=== PATIENT | male | born 1950 ===

== ENCOUNTER 2018-08-17 11:31 | Inpatient (IN) | payer BC ==
--- NOTE | 2018-08-17 12:23 | C.PDOC ---
History Of Present Illness 67 y/o male with htn and hypercholesterolemia presents to ed with pain and swelling to 3rd and 4th right fingertips for the last week. no injury. 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 Time Seen by Provider: 08/17/18 12:05 Chief Complaint (Nursing): Finger,Hand,&Wrist History Per: Patient History/Exam Limitations: no limitations Onset/Duration Of Symptoms: Days (7) Current Symptoms Are (Timing): Still Present Quality: "Pain" Severity: Moderate Past Medical History Reviewed: Historical Data, Nursing Documentation, Vital Signs Vital Signs: Last Vital Signs Temp 98.1 F 08/17/18 11:53 Pulse 95 H 08/17/18 11:53 Resp 18 08/17/18 11:53 BP 160/100 H 08/17/18 11:53 Pulse Ox 97 08/17/18 11:53 - Medical History PMH: HTN, Hypercholesterolemia Family History: States: No Known Family Hx - Social History Hx Tobacco Use: Yes Hx Alcohol Use: No Hx Substance Use: No - Immunization History Hx Tetanus Toxoid Vaccination: No Hx Influenza Vaccination: No Hx Pneumococcal Vaccination: No Review Of Systems Constitutional: Negative for: Fever, Chills Cardiovascular: Negative for: Chest Pain Respiratory: Negative for: Cough, Shortness of Breath Skin: Positive for: Other (bluish coloration to fingertips right hand) Neurological: Negative for: Weakness, Numbness Physical Exam - Physical Exam Appears: Non-toxic, No Acute Distress Skin: Warm, Dry Head: Normacephalic Neck: Supple Gastrointestinal/Abdominal: Soft, No Tenderness Extremity: Normal ROM, Other (no radial pulse palpable right hand, faint ulnar pulse palpated, right 3rd and 4th distal phlanges swollen, tender, cool to touch with blue discoloration to ventral surface fingertips, +2 bilateral dp pulses, toes cool to touch. +2 left radial pulse. ) Pulses: Right Brachial: Normal, Left Radial: Normal, Right Radial: Decreased, Left Dorsalis Pedis: Normal, Right Dorsalis Pedis: Normal Neurological/Psych: Oriented x3, Normal Speech, Normal Cognition ED Course And Treatment - Laboratory Results Result Diagrams: 08/17/18 12:33 08/17/18 12:33 ECG: Viewed By Me ECG Rhythm: Sinus Tachycardia Interpretation Of ECG: Possible left atrial enlargement. Left ventricular hypertrophy. Nonspecific T wave abnormality. Rate From EC O2 Sat by Pulse Oximetry: 97 (RA) Pulse Ox Interpretation: Normal Medical Decision Making Medical Decision Makin:22 Spoke to surgical services director pt with cool blue fingertips right hand; sx consult for arterial occlusion, will get cta arm, and sx vascular consult. Patient has no prior EKG done to compare with. discussed with Toi Lora and Bryan, will admit to Dr Adams,. Disposition Discussed With .: Ty Adams Doctor Will See Patient In The: Hospital - Disposition Disposition: HOSPITALIZED Disposition Time: 15:15 Condition: SERIOUS Forms: [place] (Lao) - Clinical Impression Clinical Impression: Arterial occlusion, Hypertension Decision To Admit - Pt Status Changed To: Hospital Disposition Of: Inpatient - Admit Certification Admit to Inpatient:: After my assessment, the patient will require hospitalization for at least two midnights. This is because of the severity of symptoms shown, intensity of services needed, and/or the medical risk in this patient being treated as an outpatient. - InPatient: Physician Admission Certification: I certify that this patient requires 2 or more midnights of care for the following reason:: requires in depth eval/testing and possibly to or for arteial occlusion - . Bed Request Type: Telemetry Patient Diagnosis: Arterial occlusion, Hypertension
[2018-08-17 12:42] LABS: BASO # 0.1 K/uL (0.0-0.2); BASO % 1.1 % (0.0-2.0); EOS # 1.6 K/uL (0.0-0.7); EOS % 12.4 % (0.0-4.0); LYMPH # 4.4 K/uL (1.0-4.3); LYMPH % 33.6 % (20.0-40.0); MEAN CELL VOLUME 91.6 fL (80.0-94.0); MEAN CORPUSCULAR HEMOGLOBIN 30.8 pg (27.0-31.0); MEAN CORPUSCULAR HGB CONC 33.7 g/dL (33.0-37.0); MEAN PLATELET VOLUME 7.7 fL (7.2-11.7); MONO # 1.2 K/uL (0.0-0.8); MONO % 9.1 % (0.0-10.0); NEUT # 5.7 K/uL (1.8-7.0); NEUT % 43.8 % (50.0-75.0); RBC 5.19 Mil/uL (4.40-5.90); RED CELL DISTRIBUTION WIDTH 14.1 % (11.5-14.5); WHITE BLOOD COUNT 13.1 K/uL (4.8-10.8)
[2018-08-17 12:52] LABS: PROTHROMBIN TIME 11.3 SECONDS (9.7-12.2)
[2018-08-17 12:53] LABS: ALB/GLOB RATIO 1.2 (1.0-2.1); ALBUMIN 4.5 g/dL (3.5-5.0); ALT/SGPT 12 U/L (21-72); AST/SGOT 32 U/L (17-59); BLOOD UREA NITROGEN 23 mg/dL (9-20); CALCIUM 9.4 mg/dl (8.6-10.4); GFR NON-AFRICAN AMERICAN > 60
[2018-08-17] MEDS ORDERED: Heparin25000 units/250ml 1/2NS 25,000 UNITS/250 ML BAG IV ONE ×3 (13:24→21:45)
--- NOTE | 2018-08-17 13:31 | CP.PCM.CON ---
History of Present Illness - History of Present Illness History of Present Illness: Vascular Surgery Dr. Lora 67 y/o M w/ PMHx of HTN, HLD, tobacco abuse presents to the ED c/o pain in R 2nd-4th digits. 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 Pain is localized to 2nd-4th DIP, though worse on 2nd DIP. Pt reports full ROM and no numbness, though does admit to noticeable temperature changes to tips of painful fingers. 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 reports wearing 2 gloves while working. Pt also reports previous degloving injury to posterior 2nd DIP ~10yrs ago that was repair, however pt did not f/u w/ hand surgeon as instructed. Pt denies any other associated symptoms. PMHx: see above Meds: reviewed in chart NKDA PSHx: hernia repair SHx: 4-5cigs per day (previous 1ppd); denies EtOH, drug use FHx: noncontributory Review of Systems - Review of Systems All systems: reviewed and no additional remarkable complaints except (see HPI) Past Patient History - Past Social History Smoking Status: Light Smoker < 10 Cigarettes Daily - CARDIAC Hx Hypercholesterolemia: Yes Hx Hypertension: Yes - PSYCHIATRIC Hx Substance Use: No - SURGICAL HISTORY Hx Surgeries: Yes Hx Herniorrhaphy: Yes Meds Allergies/Adverse Reactions: Allergies Allergy/AdvReac Type Severity Reaction Status Date / Time No Known Allergies Allergy Verified 08/17/18 11:52 Physical Exam - Constitutional Appears: Non-toxic, No Acute Distress - Head Exam Head Exam: NORMAL INSPECTION - Eye Exam Eye Exam: Normal appearance - ENT Exam ENT Exam: Mucous Membranes Moist - Respiratory Exam Respiratory Exam: NORMAL BREATHING PATTERN. absent: Accessory Muscle Use, Respiratory Distress - Cardiovascular Exam Cardiovascular Exam: REGULAR RHYTHM. absent: Bradycardia, Tachycardia - GI/Abdominal Exam GI & Abdominal Exam: Soft. absent: Distended, Tenderness - Extremities Exam Additional comments: R 2nd-3rd DIP TTP, bluish, cold palpable R ulnar pulse non-palpable R radial pulse L radial and ulnar pulses intact palpable B/L DP/PT - Neurological Exam Neurological exam: Alert, Oriented x3 - Psychiatric Exam Psychiatric exam: Normal Affect, Normal Mood - Skin Skin Exam: Dry, Intact, Normal Color, Warm Results - Vital Signs Recent Vital Signs: Last Vital Signs Temp 98.1 F 08/17/18 11:53 Pulse 95 H 08/17/18 11:53 Resp 18 08/17/18 11:53 BP 160/100 H 08/17/18 11:53 Pulse Ox 97 08/17/18 13:18 - Labs Result Diagrams: 08/17/18 12:33 08/17/18 12:33 Labs: Laboratory Results - last 24 hr 08/17/18 08/17/18 08/17/18 12:33 12:33 12:33 WBC 13.1 H RBC 5.19 Hgb 16.0 Hct 47.5 MCV 91.6 MCH 30.8 MCHC 33.7 RDW 14.1 Plt Count 273 MPV 7.7 Neut % (Auto) 43.8 L Lymph % (Auto) 33.6 [place] % (Auto) 9.1 Eos % (Auto) 12.4 H Baso % (Auto) 1.1 Neut # (Auto) 5.7 Lymph # (Auto) 4.4 H [place] # (Auto) 1.2 H Eos # (Auto) 1.6 H Baso # (Auto) 0.1 PT 11.3 INR 1.0 APTT 31 Sodium 134 Potassium 4.0 Chloride 98 Carbon Dioxide 26 Anion Gap 14 BUN 23 H Creatinine 1.0 Est GFR ( Amer) > 60 Est GFR (Non-Af Amer) > 60 Random Glucose 95 Calcium 9.4 Total Bilirubin 0.4 AST 32 ALT 12 L Alkaline Phosphatase 137 H Total Protein 8.2 Albumin 4.5 Globulin 3.8 Albumin/Globulin Ratio 1.2 - Imaging and Cardiology CTA RUE Status: Pending Assessment & Plan - Assessment and Plan (Free Text) Assessment: 67 y/o M w/ pain to R 2-4th DIP w/ no radial pulse, concerning for thromboembolism Plan: - f/u CTA RUE - start Hep gtt - type and screen - NPO@MN - IVF - plan for OR Friday 08/18 for brachial cut-down and thromboembolectomy Pt discussed w/ Dr. Geno Farah DO PGY3
[2018-08-17] MEDS ORDERED: Iodixanol 320 MG/ML 200 ML BOTTLE IV ONE (13:32)
--- NOTE | 2018-08-17 14:24 | RAD ---
Date of service: 08/17/2018 HISTORY: pre op COMPARISON: No prior. TECHNIQUE: Chest PA and lateral FINDINGS: LUNGS: No active pulmonary disease. PLEURA: No significant pleural effusion identified. No pneumothorax apparent. CARDIOVASCULAR: Calcific atherosclerotic changes are seen related to the thoracic aorta. Normal cardiac size. No pulmonary vascular congestion. OSSEOUS STRUCTURES: No significant abnormalities. VISUALIZED UPPER ABDOMEN: Normal. OTHER FINDINGS: None. IMPRESSION: No active disease.
[2018-08-17 15:02] LABS: URINE BILIRUBIN NEGATIVE (NEGATIVE); URINE BLOOD 1+ (NEGATIVE); URINE CLARITY Clear (Clear); URINE COLOR Straw (YELLOW); URINE GLUCOSE (UA) NORMAL (Normal); URINE LEUKOCYTE ESTERASE NEG Leu/uL (Negative); URINE PROTEIN NEGATIVE (NEGATIVE); URINE UROBILINOGEN NORMAL mg/dL (0.2-1.0)
[2018-08-17] MEDS ORDERED: Labetalol 25mg/5ml Syringe IVP STA (15:45)
[2018-08-17] MEDS ORDERED: Labetalol 5mg/ml (4ml) ONE (15:51)
--- NOTE | 2018-08-17 16:46 | CT ---
Date of service: 08/17/2018 PROCEDURE: CT ANGIOGRAPHY CHEST AND RIGHT UPPER EXTREMITY. HISTORY: no palpable radial pulse, blue cold fingertips COMPARISON: None available. TECHNIQUE: Contiguous axial images were obtained through the chest during the arterial phase of intravenous contrast enhancement. Sagittal and coronal reconstructions were performed. IV contrast: Visipaque 320, 120 cc Radiation dose: Total exam DLP = 1960.55 mGy-cm. This CT exam was performed using one or more of the following dose reduction techniques: Automated exposure control, adjustment of the mA and/or kV according to patient size, and/or use of iterative reconstruction technique. FINDINGS: Angiography: The examination is captured at the arterial venous phase of contrast enhancement and not the arterial phase limiting evaluation of small arterial branches. An atherosclerotic thoracic aorta is appreciate without aneurysm or dissection grossly evident. A significant stenosis of the left subclavian artery is not excluded. Mild atherosclerosis seen affecting left common and brachiocephalic arteries with marked calcified atherosclerosis affecting the proximal subclavian artery over a 2-2.5 cm segment suspicious for a high-grade if not critical stenosis here. The remainder of the right subclavian artery is widely patent. The right axillary and brachial arteries appear widely patent as well. The radial artery appears to be occluded at its origin and only occasional distal reconstitution is seen admitted distal segments in short segments. The ulnar artery appears patent throughout without moderate or severe stenosis appreciated throughout. Better characterization can provided by selective angiography under DSA technique. LUNGS: Extensive centrilobular emphysematous changes are identified at the apices with minimal basilar involvement. No infiltrates bilaterally. Dependent atelectasis identified bilaterally with occasional ground-glass opacity representing underlying interstitial pulmonary changes. No discrete mass. Central airways appear clear grossly. MEDIASTINUM: Unremarkable thoracic aorta. No aneurysm or dissection. Normal sized heart. Main pulmonary artery unremarkable. No vascular congestion. No lymphadenopathy. Calcific atherosclerotic changes are seen related to the thoracic aorta. PLEURA: No pleural fluid. No pneumothorax. BONES: No fracture. No destructive lesion. UPPER ABDOMEN: Grossly unremarkable. OTHER FINDINGS: None. IMPRESSION: 1. Poor CT Angiography technique. High-grade if not critical stenosis proximal right renal artery. Occluded lengthy segment of proximal right radial artery beginning at its origin with only occasional segmental reconstitution at short segments of the mid and distal radial artery. Widely patent right ulnar artery throughout. 2. COPD. 3. No infiltrate pleural or pericardial effusion. Normal cardiac size.
[2018-08-17] MEDS ORDERED: Aspirin 325 mg EC Tablets PO ONE (17:42)
[2018-08-17 18:42] LABS: HDL CHOLESTEROL 55 mg/dL (30-70)
[2018-08-17 18:53] LABS: LDL CHOLESTEROL 122 mg/dL (0-129)
[2018-08-17] MEDS: Sodium Chloride 0.9% 1,000 ML IV SCH (20:06)
[2018-08-17 20:58] LABS: BASO # 0.1 K/uL (0.0-0.2); EOS # 1.3 K/uL (0.0-0.7); EOS % 9.7 % (0.0-4.0); HEMOGLOBIN 14.9 g/dL (12.0-18.0); LYMPH # 2.3 K/uL (1.0-4.3); LYMPH % 16.5 % (20.0-40.0); MEAN CELL VOLUME 91.4 fL (80.0-94.0); MEAN CORPUSCULAR HEMOGLOBIN 30.2 pg (27.0-31.0); MEAN PLATELET VOLUME 7.6 fL (7.2-11.7); MONO # 0.9 K/uL (0.0-0.8); MONO % 6.7 % (0.0-10.0); NEUT # 9.1 K/uL (1.8-7.0); NEUT % 66.1 % (50.0-75.0); RBC 4.94 Mil/uL (4.40-5.90); RED CELL DISTRIBUTION WIDTH 13.9 % (11.5-14.5); WHITE BLOOD COUNT 13.8 K/uL (4.8-10.8)
[2018-08-17 21:05] LABS: INR 1.2; PROTHROMBIN TIME 12.6 SECONDS (9.7-12.2)
[2018-08-17 21:12] LABS: BLOOD UREA NITROGEN 20 mg/dL (9-20); CALCIUM 8.7 mg/dl (8.6-10.4); GFR NON-AFRICAN AMERICAN > 60
[2018-08-17 21:21] LABS: CK-MB 2.93 ng/mL (0.0-3.38)
[2018-08-18 03:13] LABS: CK-MB 2.46 ng/mL (0.0-3.38)
[2018-08-18] MEDS: Sodium Chloride 0.9% 1,000 ML IV SCH ×2 (05:18→18:28)
[2018-08-18 08:03] LABS: CK-MB 2.47 ng/mL (0.0-3.38); TROPONIN I 0.013 ng/mL (0.00-0.120)
[2018-08-18] MEDS ORDERED: Iodixanol 320 MG/ML 200 ML BOTTLE IV ONE (09:27)
[2018-08-18] MEDS ORDERED: Lidocaine 2% MPF (5 ml) Inj ONE ×2 (09:27→09:29)
--- NOTE | 2018-08-18 09:47 | CP.PCM.CON ---
<Angeles Sosa EvetteDiana - Last Filed: 08/18/18 18:45> History of Present Illness - History of Present Illness History of Present Illness: Cardiology Consult Note for Dr. Diaz: 67 year old male with PMHx of HTN, HLD and tobacco abuse presented to the ED with pain in his right 2nd-4th digits. He states he has been having pain for awhile but for the past 2 weeks it has become much worse which prompted him to come to the ER. Patient denies numbness or tingling. Patient denies chest pain, shortness of breath, palpitations, nausea, vomiting, fever, chills, diarrhea, constipation or dysuria. Past Medical History: HTN, HLD Past Surgical History: Hernia repair Medications: MAR Social History: Patient states he smokes about 1 ppd for 50 years; he drinks 2-3 beers on the weekend. 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 Review of Systems - Constitutional Constitutional: absent: Chills, Fever - Cardiovascular Cardiovascular: absent: Chest Pain, Dyspnea, Dyspnea on Exertion, Leg Edema, Palpitations - Respiratory Respiratory: absent: Cough, Dyspnea, Wheezing - Gastrointestinal Gastrointestinal: absent: Constipation, Diarrhea, Nausea, Vomiting - Genitourinary Genitourinary: absent: Dysuria - Musculoskeletal Musculoskeletal: Other (pain in his right digitis 2-4) - Neurological Neurological: absent: Dizziness Past Patient History - Past Medical History & Family History Past Medical History?: Yes - Past Social History Smoking Status: Light Smoker < 10 Cigarettes Daily - CARDIAC Hx Hypercholesterolemia: Yes Hx Hypertension: Yes - MUSCULOSKELETAL/RHEUMATOLOGICAL Hx Falls: No - PSYCHIATRIC Hx Substance Use: No - SURGICAL HISTORY Hx Surgeries: Yes Hx Herniorrhaphy: Yes - ANESTHESIA Hx Anesthesia: Yes Hx Anesthesia Reactions: No Hx Malignant Hyperthermia: No Has any member of the family had a problem w/ anesthesia?: No Meds Allergies/Adverse Reactions: Allergies Allergy/AdvReac Type Severity Reaction Status Date / Time No Known Allergies Allergy Verified 08/17/18 11:52 - Medications Medications: Current Medications Aspirin (Ecotrin) 81 mg PO DAILY [facility] Last Admin: 08/17/18 17:47 Dose: 81 mg Sodium Chloride (Sodium Chloride 0.9%) 1,000 mls @ 100 mls/hr IV .Q10H [facility] Last Admin: 08/18/18 05:18 Dose: 100 mls/hr Heparin Sodium/Sodium Chloride (Heparin 96883 Units/250ml 1/2 Normal Saline) 25,000 units in 250 mls @ 12.737 mls/hr IV .[id number] ONE; Protocol Stop: 08/18/18 17:22 Last Admin: 08/17/18 21:53 Dose: 18 units/kg/hr, 12.737 mls/hr Labetalol HCl (Trandate) 100 mg PO BID [facility] Last Admin: 08/17/18 18:08 Dose: 100 mg Rosuvastatin Calcium (Crestor) 20 mg PO HS [facility] Last Admin: 08/17/18 23:24 Dose: 20 mg Physical Exam - Constitutional Appears: No Acute Distress - Head Exam Head Exam: ATRAUMATIC, NORMAL INSPECTION - Eye Exam Eye Exam: EOMI, Normal appearance - ENT Exam ENT Exam: Mucous Membranes Moist - Respiratory Exam Respiratory Exam: Clear to Auscultation Bilateral, NORMAL BREATHING PATTERN - Cardiovascular Exam Cardiovascular Exam: REGULAR RHYTHM, +S1, +S2 - GI/Abdominal Exam GI & Abdominal Exam: Normal Bowel Sounds, Soft. absent: Tenderness - Extremities Exam Additional comments: Righ 2nd-3rd DIP - bluish, cold - Neurological Exam Neurological exam: Alert, Oriented x3 - Psychiatric Exam Psychiatric exam: Normal Affect Results - Vital Signs Recent Vital Signs: Last Vital Signs Temp 97.2 F L 08/18/18 07:00 Pulse 80 08/18/18 07:00 Resp 20 08/18/18 07:00 BP 116/74 08/18/18 07:00 Pulse Ox 97 08/18/18 07:00 - Labs Result Diagrams: 08/17/18 20:51 08/17/18 20:51 Labs: Laboratory Results - last 24 hr 08/17/18 08/17/18 08/17/18 12:33 12:33 12:33 WBC 13.1 H RBC 5.19 Hgb 16.0 Hct 47.5 MCV 91.6 MCH 30.8 MCHC 33.7 RDW 14.1 Plt Count 273 MPV 7.7 Neut % (Auto) 43.8 L Lymph % (Auto) 33.6 [place] % (Auto) 9.1 Eos % (Auto) 12.4 H Baso % (Auto) 1.1 Neut # (Auto) 5.7 Lymph # (Auto) 4.4 H [place] # (Auto) 1.2 H Eos # (Auto) 1.6 H Baso # (Auto) 0.1 ESR PT 11.3 INR 1.0 APTT 31 Sodium 134 Potassium 4.0 Chloride 98 Carbon Dioxide 26 Anion Gap 14 BUN 23 H Creatinine 1.0 Est GFR ( Amer) > 60 Est GFR (Non-Af Amer) > 60 POC Glucose (mg/dL) Random Glucose 95 Calcium 9.4 Total Bilirubin 0.4 AST 32 ALT 12 L Alkaline Phosphatase 137 H Total Creatine Kinase CK-MB (Mass) Troponin I Total Protein 8.2 Albumin 4.5 Globulin 3.8 Albumin/Globulin Ratio 1.2 Triglycerides Cholesterol LDL Cholesterol Direct HDL Cholesterol Urine Color Urine Clarity Urine pH Ur Specific [place] Urine Protein Urine Glucose (UA) Urine Ketones Urine Blood Urine Nitrate Urine Bilirubin Urine Urobilinogen Ur Leukocyte Esterase Urine WBC (Auto) Urine RBC (Auto) Blood Type Antibody Screen 08/17/18 08/17/18 08/17/18 14:49 14:49 18:15 WBC RBC Hgb Hct MCV MCH MCHC RDW Plt Count MPV Neut % (Auto) Lymph % (Auto) [place] % (Auto) Eos % (Auto) Baso % (Auto) Neut # (Auto) Lymph # (Auto) [place] # (Auto) Eos # (Auto) Baso # (Auto) ESR 21 H PT INR APTT Sodium Potassium Chloride Carbon Dioxide Anion Gap BUN Creatinine Est GFR ( Amer) Est GFR (Non-Af Amer) POC Glucose (mg/dL) Random Glucose Calcium Total Bilirubin AST ALT Alkaline Phosphatase Total Creatine Kinase CK-MB (Mass) Troponin I Total Protein Albumin Globulin Albumin/Globulin Ratio Triglycerides Cholesterol LDL Cholesterol Direct HDL Cholesterol Urine Color Straw Urine Clarity Clear Urine pH 7.0 Ur Specific [place] 1.014 Urine Protein Negative Urine Glucose (UA) Normal Urine Ketones Negative Urine Blood 1+ H Urine Nitrate Negative Urine Bilirubin Negative Urine Urobilinogen Normal Ur Leukocyte Esterase Neg Urine WBC (Auto) < 1 Urine RBC (Auto) 2 Blood Type O POSITIVE Antibody Screen Negative 08/17/18 08/17/18 08/17/18 18:15 19:37 20:51 WBC 13.8 H RBC 4.94 Hgb 14.9 Hct 45.1 MCV 91.4 MCH 30.2 MCHC 33.0 RDW 13.9 Plt Count 263 MPV 7.6 Neut % (Auto) 66.1 Lymph % (Auto) 16.5 L [place] % (Auto) 6.7 Eos % (Auto) 9.7 H Baso % (Auto) 1.0 Neut # (Auto) 9.1 H Lymph # (Auto) 2.3 [place] # (Auto) 0.9 H Eos # (Auto) 1.3 H Baso # (Auto) 0.1 ESR PT INR APTT Sodium Potassium Chloride Carbon Dioxide Anion Gap BUN Creatinine Est GFR ( Amer) Est GFR (Non-Af Amer) POC Glucose (mg/dL) 130 H Random Glucose Calcium Total Bilirubin AST ALT Alkaline Phosphatase Total Creatine Kinase CK-MB (Mass) Troponin I Total Protein Albumin Globulin Albumin/Globulin Ratio Triglycerides 82 Cholesterol 189 LDL Cholesterol Direct 122 HDL Cholesterol 55 Urine Color Urine Clarity Urine pH Ur Specific [place] Urine Protein Urine Glucose (UA) Urine Ketones Urine Blood Urine Nitrate Urine Bilirubin Urine Urobilinogen Ur Leukocyte Esterase Urine WBC (Auto) Urine RBC (Auto) Blood Type Antibody Screen 08/17/18 08/17/18 08/18/18 20:51 20:51 02:47 WBC RBC Hgb Hct MCV MCH MCHC RDW Plt Count MPV Neut % (Auto) Lymph % (Auto) [place] % (Auto) Eos % (Auto) Baso % (Auto) Neut # (Auto) Lymph # (Auto) [place] # (Auto) Eos # (Auto) Baso # (Auto) ESR PT 12.6 H INR 1.2 APTT 79 H D Sodium 133 Potassium 3.8 Chloride 102 Carbon Dioxide 22 Anion Gap 13 BUN 20 Creatinine 1.1 Est GFR ( Amer) > 60 Est GFR (Non-Af Amer) > 60 POC Glucose (mg/dL) Random Glucose 115 H D Calcium 8.7 Total Bilirubin AST ALT Alkaline Phosphatase Total Creatine Kinase 215 H 189 H CK-MB (Mass) 2.93 2.46 Troponin I 0.0130 < 0.0120 Total Protein Albumin Globulin Albumin/Globulin Ratio Triglycerides Cholesterol LDL Cholesterol Direct HDL Cholesterol Urine Color Urine Clarity Urine pH Ur Specific [place] Urine Protein Urine Glucose (UA) Urine Ketones Urine Blood Urine Nitrate Urine Bilirubin Urine Urobilinogen Ur Leukocyte Esterase Urine WBC (Auto) Urine RBC (Auto) Blood Type Antibody Screen 08/18/18 08/18/18 03:06 07:18 WBC RBC Hgb Hct MCV MCH MCHC RDW Plt Count MPV Neut % (Auto) Lymph % (Auto) [place] % (Auto) Eos % (Auto) Baso % (Auto) Neut # (Auto) Lymph # (Auto) [place] # (Auto) Eos # (Auto) Baso # (Auto) ESR PT INR APTT 79 H Sodium Potassium Chloride Carbon Dioxide Anion Gap BUN Creatinine Est GFR ( Amer) Est GFR (Non-Af Amer) POC Glucose (mg/dL) Random Glucose Calcium Total Bilirubin AST ALT Alkaline Phosphatase Total Creatine Kinase 147 CK-MB (Mass) 2.47 Troponin I 0.0130 Total Protein Albumin Globulin Albumin/Globulin Ratio Triglycerides Cholesterol LDL Cholesterol Direct HDL Cholesterol Urine Color Urine Clarity Urine pH Ur Specific [place] Urine Protein Urine Glucose (UA) Urine Ketones Urine Blood Urine Nitrate Urine Bilirubin Urine Urobilinogen Ur Leukocyte Esterase Urine WBC (Auto) Urine RBC (Auto) Blood Type Antibody Screen Assessment & Plan - Assessment and Plan (Free Text) Assessment: Pain in Right Digits 2-4 Secondary to Occluded right subclavian artery - Vascular Surgery: Dr. Lora --> help appreciated - s/p 08/18/18 Diagnostic Angiogram with Attempted recancalization of occluded right subclavian artery - Pending Cardiac Optimization: - ECHO (08/18/18): reviewed with Dr. Diaz - Normal - Trop negative x3 - Stress Test Scheduled for 08/19/18 History of HTN - Continue Labetalol 100mg po bid History of HDL - Lipid Panel: Total Cholesterol 189; LDL 122; HDL 55; Triglycerides 82 - Continue Crestor 20mg po HS Case discussed with Dr. Joe Sosa PGY-2 <Chencho Diaz - Last Filed: 08/18/18 23:38> Meds - Medications Medications: Current Medications Aspirin (Ecotrin) 81 mg PO DAILY [facility] Last Admin: 08/18/18 11:01 Dose: Not Given Sodium Chloride (Sodium Chloride 0.9%) 1,000 mls @ 100 mls/hr IV .Q10H [facility] Last Admin: 08/18/18 18:28 Dose: Not Given Sodium Chloride (Sodium Chloride 0.9%) 500 mls @ 75 mls/hr IV .Q6H40M [facility] Last Admin: 08/18/18 22:03 Dose: Not Given Heparin Sodium/Sodium Chloride (Heparin 61145 Units/250ml 1/2 Normal Saline) 25,000 units in 250 mls @ 13.39 mls/hr IV .[id number] PRN; Protocol PRN Reason: PROTOCOL Last Admin: 08/18/18 21:21 Dose: 18 units/kg/hr, 13.39 mls/hr Labetalol HCl (Trandate) 100 mg PO BID [facility] Last Admin: 08/18/18 18:28 Dose: 100 mg Rosuvastatin Calcium (Crestor) 20 mg PO HS [facility] Last Admin: 08/18/18 22:02 Dose: 20 mg Results - Vital Signs Recent Vital Signs: Last Vital Signs Temp 98.1 F 08/18/18 15:15 Pulse 80 08/18/18 16:09 Resp 20 08/18/18 15:15 BP 150/96 H 08/18/18 15:15 Pulse Ox 97 08/18/18 15:15 - Labs Result Diagrams: 08/17/18 20:51 08/17/18 20:51 Labs: Laboratory Results - last 24 hr 08/18/18 08/18/18 08/18/18 02:47 03:06 07:18 APTT 79 H Total Creatine Kinase 189 H 147 CK-MB (Mass) 2.46 2.47 Troponin I < 0.0120 0.0130 Assessment & Plan - Assessment and Plan (Free Text) Assessment: Patient seen and evaluated personally by me. Plan of care d/w the resident and as documented
[2018-08-18] MEDS ORDERED: Midazolam 2 MG/2 ML VIAL ONE (09:49)
--- NOTE | 2018-08-18 11:40 | PCM.SURG1 ---
Surgeon's Initial Post Op Note - Surgeon's Notes Surgeon: Dr. Bailey , Dr. Lora Payroll Processor: Mr. Terrence Varma Type of Anesthesia: MAC Pre-Operative Diagnosis: Right Hand Pain and Ischemia from right subclavian artery stenosis Operative Findings: Right Subclavian Occlusion with reconstitution via collaterals Post-Operative Diagnosis: right subclavian occlusion with reconstituion via collaterals Operation Performed: Diagnostic Angiogram with Attempted recancalization of occluded right subclavian artery Specimen/Specimens Removed: None Estimated Blood Loss: EBL {In ML}: 10 Blood Products Given: N/A Drains Used: No Drains Date of Surgery/Procedure: 08/18/18 Time of Surgery/Procedure: 11:41
[2018-08-18] MEDS ORDERED: Heparin25000 units/250ml 1/2NS 25,000 UNITS/250 ML BAG IV PRN (20:32)
[2018-08-18] MEDS: Heparin25000 units/250ml 1/2NS 25,000 UNITS/250 ML BAG IV PRN (21:21)
[2018-08-18] MEDS: Sodium Chloride 0.9% 500 ML IV SCH (22:03)
--- NOTE | 2018-08-18 22:44 | CP.PCM.HP ---
Present on Admission - Present on Admission Any Indicators Present on Admission: No Past Patient History - Past Medical History & Family History Past Medical History?: Yes - Past Social History Smoking Status: Light Smoker < 10 Cigarettes Daily - CARDIAC Hx Hypercholesterolemia: Yes Hx Hypertension: Yes - MUSCULOSKELETAL/RHEUMATOLOGICAL Hx Falls: No - PSYCHIATRIC Hx Substance Use: No - SURGICAL HISTORY Hx Surgeries: Yes Hx Herniorrhaphy: Yes - ANESTHESIA Hx Anesthesia: Yes Hx Anesthesia Reactions: No Hx Malignant Hyperthermia: No Has any member of the family had a problem w/ anesthesia?: No Meds Allergies/Adverse Reactions: Allergies Allergy/AdvReac Type Severity Reaction Status Date / Time No Known Allergies Allergy Verified 08/17/18 11:52 Results - Vital Signs Recent Vital Signs: Last Vital Signs Temp 98.1 F 08/18/18 15:15 Pulse 80 08/18/18 16:09 Resp 20 08/18/18 15:15 BP 150/96 H 08/18/18 15:15 Pulse Ox 97 08/18/18 15:15 - Labs Result Diagrams: 08/17/18 20:51 08/17/18 20:51 Labs: Laboratory Results - last 24 hr 08/18/18 08/18/18 08/18/18 02:47 03:06 07:18 APTT 79 H Total Creatine Kinase 189 H 147 CK-MB (Mass) 2.46 2.47 Troponin I < 0.0120 0.0130
[2018-08-19 07:43] LABS: BASO % 0.5 % (0.0-2.0); EOS # 0.3 K/uL (0.0-0.7); EOS % 2.8 % (0.0-4.0); HEMOGLOBIN 14.2 g/dL (12.0-18.0); LYMPH # 2.1 K/uL (1.0-4.3); LYMPH % 20.1 % (20.0-40.0); MEAN CELL VOLUME 91.8 fL (80.0-94.0); MEAN CORPUSCULAR HEMOGLOBIN 31.1 pg (27.0-31.0); MEAN CORPUSCULAR HGB CONC 33.9 g/dL (33.0-37.0); MONO % 10.1 % (0.0-10.0); NEUT # 6.9 K/uL (1.8-7.0); NEUT % 66.5 % (50.0-75.0); RBC 4.56 Mil/uL (4.40-5.90); RED CELL DISTRIBUTION WIDTH 13.6 % (11.5-14.5); WHITE BLOOD COUNT 10.3 K/uL (4.8-10.8)
[2018-08-19 08:14] LABS: ALB/GLOB RATIO 1.2 (1.0-2.1); ALBUMIN 3.8 g/dL (3.5-5.0); ALT/SGPT 10 U/L (21-72); AST/SGOT 24 U/L (17-59); BLOOD UREA NITROGEN 12 mg/dL (9-20); CALCIUM 8.1 mg/dl (8.6-10.4); GFR NON-AFRICAN AMERICAN > 60
[2018-08-19] MEDS ORDERED: Caffeine Citrated **INJ** 20 MG/ML IV ONE (08:22)
--- NOTE | 2018-08-19 09:55 | CP.PCM.PN ---
Subjective - Date & Time of Evaluation Date of Evaluation: 08/19/18 Time of Evaluation: 07:00 - Subjective Subjective: Vascular Surgery: Dr. Lora Pt seen and examined. No acute overnight events. States he feels ok and denies any complaints at this time. R hand continues to have some tingling at the fingertips. Denies fevers/chills Objective - Vital Signs/Intake and Output Vital Signs (last 24 hours): Temp Pulse Resp BP Pulse Ox 98.1 F 80 20 164/99 H 97 08/19/18 07:40 08/19/18 07:40 08/19/18 07:40 08/19/18 07:40 08/19/18 07:40 Intake and Output: 08/19/18 08/19/18 06:59 18:59 Intake Total 951.6 Output Total 450 Balance 501.6 - Medications Medications: Current Medications Aspirin (Ecotrin) 81 mg PO DAILY REPLACED BY [facility] Last Admin: 08/18/18 11:01 Dose: Not Given Sodium Chloride (Sodium Chloride 0.9%) 1,000 mls @ 100 mls/hr IV .Q10H REPLACED BY [facility] Last Admin: 08/18/18 18:28 Dose: Not Given Sodium Chloride (Sodium Chloride 0.9%) 500 mls @ 75 mls/hr IV .Q6H40M REPLACED BY [facility] Last Admin: 08/18/18 22:03 Dose: Not Given Heparin Sodium/Sodium Chloride (Heparin 01476 Units/250ml 1/2 Normal Saline) 25,000 units in 250 mls @ 13.39 mls/hr IV .[id number] PRN; Protocol PRN Reason: PROTOCOL Last Admin: 08/18/18 21:21 Dose: 18 units/kg/hr, 13.39 mls/hr Labetalol HCl (Trandate) 100 mg PO BID REPLACED BY [facility] Last Admin: 08/18/18 18:28 Dose: 100 mg Rosuvastatin Calcium (Crestor) 20 mg PO HS REPLACED BY [facility] Last Admin: 08/18/18 22:02 Dose: 20 mg - Labs Labs: 08/19/18 07:31 08/19/18 07:31 PT 12.6 SECONDS (9.7-12.2) H 08/17/18 20:51 INR 1.2 08/17/18 20:51 APTT 73 SECONDS (21-34) H D 08/19/18 07:31 - Constitutional Appears: Well, No Acute Distress - Head Exam Head Exam: ATRAUMATIC, NORMOCEPHALIC - Eye Exam Eye Exam: Normal appearance - ENT Exam ENT Exam: Mucous Membranes Moist - Respiratory Exam Respiratory Exam: NORMAL BREATHING PATTERN - Cardiovascular Exam Cardiovascular Exam: RRR - GI/Abdominal Exam GI & Abdominal Exam: Soft - Extremities Exam Additional comments: R hand with numbness/tingling in first 3 digits, b/l UE warm - Neurological Exam Neurological Exam: Alert, Awake, Oriented x3 Assessment and Plan - Assessment and Plan (Free Text) Assessment: 67M with R subclavian & radial artery stenosis s/p UE angio; POD#1 Plan: - plan for upper extremity bypass - f/u stress test and cardiac risk stratification - optimize for OR - cont Hep drip - d/w Dr. Geno Hassan
--- NOTE | 2018-08-19 10:10 | HP ---
CHIEF COMPLAINT: Left upper extremity pain in the hand. HISTORY OF PRESENT ILLNESS: This is a 67-year-old male with history of hypertension, hyperlipidemia, chronic heavy smoker one pack per day. He denies any history of diabetes, and the patient complained of pain, swelling of third and fourth right hand fingertips. There is no history of injury. 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 According to the patient, most of the time, he does wear gloves and he denies any history of trauma to any part of his upper extremity. According to him, this whole pain started about 10 days prior to the admission and it has been worsening, and in the last two days, it has become unbearable, pain is in second to fourth digit including third digit and this worsened. The patient is able to move all his fingers. He denies any tingling, numbness, paresthesias of the hand. He denies any history of rash on the hand. He denies any history of insect bite. He denies any history of cough, sore throat, runny nose. He denies any history of polyuria, polydipsia, polyphagia. He denies pertinent hematuria or pyuria. There is no history of sneezing. There is no history of joint pain or hip pain. PAST MEDICAL HISTORY: Hernia repair. SOCIAL HISTORY: He is ex-smoker one pack per day. He quit four years ago. Non-alcohol user. He is not taking any medications. ALLERGIES: NO KNOWN ALLERGIES. PHYSICAL EXAMINATION: GENERAL: An elderly male in no acute distress, on heparin drip. VITAL SIGNS: Blood pressure 150/96, pulse 87, respiratory rate 20, temperature 98.1. SKIN: No rashes. No bruises. No purpura. Tips of his second, third and fourth digits are bluish, but rest of the fingers are normal. Bilateral radial and ulnar pulses are palpable. HEENT: Atraumatic and normocephalic. Negative pallor. Negative jaundice. Extraocular movements are intact. NECK: Supple. No JVD. No lymph node. No thyromegaly. No carotid bruit. CHEST WALL: Bilateral symmetrical expansion. No tenderness. No deformity. LUNGS: Bilaterally clear. No rales. No rhonchi. CARDIOVASCULAR SYSTEM: S1 and S2, regular. No heave. No thrill. ABDOMEN: Soft and nontender. Bowel sounds are positive. CENTRAL NERVOUS SYSTEM: Awake, alert, and oriented x3. Cranial nerves II through XII are normal. Power 5/5 x4. Plantars are downgoing. ASSESSMENT: 1. Acute arterial obstruction of left upper extremities, probably underlying atherosclerosis with multiple risk factor including smoking, hyperlipidemia, and hypertension. 2. Hypertension, poorly controlled. 3. Rule out hyperlipidemia. PLAN: Admit. Detailed orders are written. Seen and examined. Ty Adams MD
--- NOTE | 2018-08-19 11:38 | CARD ---
APPROVED REPORT Date of service: 08/18/2018 EXAM: Two-dimensional and M-mode echocardiogram with Doppler and color Doppler. Other Information Quality : GoodRhythm : RISK FACTORS Hypertension Hyperlipidemia 2D DIMENSIONS IVSd1.2 (0.7-1.1cm)LVDd3.4 (3.9-5.9cm) PWd1.2 (0.7-1.1cm)LA Dpresb68 (18-58mL) LVDs1.8 (2.5-4.0cm)FS (%) 48.2 % LVEF (%)71.0 (>50%)LVEF (Harris's)59.50 % IVC0.00 cm M-Mode DIMENSIONS RVDd1.55 (2.1-3.2cm)Left Atrium (MM)3.12 (2.5-4.0cm) IVSd0.88 (0.7-1.1cm)Aortic Root3.19 (2.2-3.7cm) LVDd4.86 (4.0-5.6cm)Aortic Cusp Exc.1.68 (1.5-2.0cm) PWd1.18 (0.7-1.1cm)FS (%) 41 % LVDs2.89 (2.0-3.8cm)LVEF (%)71 (>50%) Mitral Valve MV E Zbvzqsjk90.1cm/sMV A Kesaxvfe398.0cm/sE/A ratio0.6 TDI Lateral E' Peak V6.93cm/sMedial E' Peak V6.55cm/sE/Lateral E'9.5 E/Medial E'10.1 <Conclusion> Left ventricle: thickness: normal; size: normal; overall ejection fraction: 65%: diastolic filling pressures: normal Mitral valve: annulus: MAC; leaflets: normal: excursion: normal; no significant trans-mitral gradient: no significant incompetence: left atrium: normal Aortic valve: leaflets: mild calcific thickening: excursion: normal; no significant trans-aortic gradient: mild incompetence: aortic root: normal Right sided Structures: Pulmonary valve: normal; no significant incompetence; Tricuspid valve: normal; no significant incompetence: Intra-cardiac hemodynamics: pulmonary systolic pressures: normal; central venous pressures: normal No pericardial effusion
--- NOTE | 2018-08-19 12:08 | CP.PCM.PN ---
<Angeles Sosa - Last Filed: 08/19/18 16:46> Subjective - Date & Time of Evaluation Date of Evaluation: 08/19/18 Time of Evaluation: 10:00 - Subjective Subjective: Cardiology Note for Dr. Diaz: Patient was seen and examined at bedside. Patient states he is feeling well. He states he continues to have pain sensation in his right digits 2-4. Patient denies chest pain, shortness of breath, palpitations, nausea, vomiting, fever, chills, diarrhea, constipation or dysuria. Objective - Vital Signs/Intake and Output Vital Signs (last 24 hours): Temp Pulse Resp BP Pulse Ox 98.1 F 92 H 20 138/91 H 97 08/19/18 07:40 08/19/18 10:43 08/19/18 07:40 08/19/18 10:43 08/19/18 07:40 Intake and Output: 08/19/18 08/19/18 06:59 18:59 Intake Total 951.6 Output Total 450 Balance 501.6 - Medications Medications: Current Medications Aspirin (Ecotrin) 81 mg PO DAILY [facility] Last Admin: 08/19/18 10:44 Dose: 81 mg Sodium Chloride (Sodium Chloride 0.9%) 1,000 mls @ 100 mls/hr IV .Q10H [facility] Last Admin: 08/18/18 18:28 Dose: Not Given Sodium Chloride (Sodium Chloride 0.9%) 500 mls @ 75 mls/hr IV .Q6H40M [facility] Last Admin: 08/18/18 22:03 Dose: Not Given Heparin Sodium/Sodium Chloride (Heparin 14907 Units/250ml 1/2 Normal Saline) 25,000 units in 250 mls @ 13.39 mls/hr IV .[id number] PRN; Protocol PRN Reason: PROTOCOL Last Admin: 08/18/18 21:21 Dose: 18 units/kg/hr, 13.39 mls/hr Labetalol HCl (Trandate) 100 mg PO BID [facility] Last Admin: 08/19/18 10:44 Dose: 100 mg Rosuvastatin Calcium (Crestor) 20 mg PO HS [facility] Last Admin: 08/18/18 22:02 Dose: 20 mg - Labs Labs: 08/19/18 07:31 08/19/18 07:31 PT 12.6 SECONDS (9.7-12.2) H 08/17/18 20:51 INR 1.2 08/17/18 20:51 APTT 73 SECONDS (21-34) H D 08/19/18 07:31 - Constitutional Appears: No Acute Distress - Head Exam Head Exam: ATRAUMATIC, NORMAL INSPECTION - Eye Exam Eye Exam: EOMI, Normal appearance - ENT Exam ENT Exam: Mucous Membranes Moist - Respiratory Exam Respiratory Exam: Clear to Ausculation Bilateral, NORMAL BREATHING PATTERN - Cardiovascular Exam Cardiovascular Exam: REGULAR RHYTHM, +S1, +S2 - GI/Abdominal Exam GI & Abdominal Exam: Soft, Normal Bowel Sounds. absent: Tenderness - Extremities Exam Additional comments: Righ 2nd-3rd DIP - bluish, cold Assessment and Plan - Assessment and Plan (Free Text) Assessment: Pain in Right Digits 2-4 Secondary to Occluded right subclavian artery - Vascular Surgery: Dr. Lora --> help appreciated - s/p 08/18/18 Diagnostic Angiogram with Attempted recancalization of occluded right subclavian artery - Pending Cardiac Optimization: - ECHO (08/18/18): reviewed with Dr. Diaz - Normal - Trop negative x3 - Dr. Diaz to review Stress Test (08/19/18) History of HTN - Continue Labetalol 100mg po bid History of HDL - Lipid Panel: Total Cholesterol 189; LDL 122; HDL 55; Triglycerides 82 - Continue Crestor 20mg po HS Case discussed with Dr. Joe Sosa PGY-2 <Chencho Diaz - Last Filed: 08/19/18 19:18> Objective - Vital Signs/Intake and Output Vital Signs (last 24 hours): Temp Pulse Resp BP Pulse Ox 98 F 88 18 117/70 94 L 08/19/18 15:04 08/19/18 16:00 08/19/18 15:04 08/19/18 15:04 08/19/18 15:04 Intake and Output: 08/19/18 08/20/18 18:59 06:59 Intake Total 250 Balance 250 - Medications Medications: Current Medications Aspirin (Ecotrin) 81 mg PO DAILY [facility] Last Admin: 08/19/18 10:44 Dose: 81 mg Sodium Chloride (Sodium Chloride 0.9%) 1,000 mls @ 100 mls/hr IV .Q10H [facility] Last Admin: 08/19/18 12:44 Dose: 100 mls/hr Sodium Chloride (Sodium Chloride 0.9%) 500 mls @ 75 mls/hr IV .Q6H40M [facility] Last Admin: 08/18/18 22:03 Dose: Not Given Heparin Sodium/Sodium Chloride (Heparin 71469 Units/250ml 1/2 Normal Saline) 25,000 units in 250 mls @ 13.39 mls/hr IV .[id number] PRN; Protocol PRN Reason: PROTOCOL Last Admin: 08/19/18 17:25 Dose: 18 units/kg/hr, 13.39 mls/hr Labetalol HCl (Trandate) 100 mg PO BID [facility] Last Admin: 08/19/18 17:36 Dose: 100 mg Rosuvastatin Calcium (Crestor) 20 mg PO HS [facility] Last Admin: 08/18/18 22:02 Dose: 20 mg - Labs Labs: 08/19/18 07:31 08/19/18 07:31 PT 12.6 SECONDS (9.7-12.2) H 08/17/18 20:51 INR 1.2 08/17/18 20:51 APTT 73 SECONDS (21-34) H D 08/19/18 07:31 Assessment and Plan - Assessment and Plan (Free Text) Assessment: Patient has normal stress test and normal EF This patient assessed as low to intermediate cardiac risk for Right Carotid and Subclavian bypass surgery under general anaesthesia Will follow Thanks
[2018-08-19] MEDS: Sodium Chloride 0.9% 1,000 ML IV SCH (12:44)
[2018-08-19] MEDS: Heparin25000 units/250ml 1/2NS 25,000 UNITS/250 ML BAG IV PRN (17:25)
--- NOTE | 2018-08-19 17:35 | PCM.OP ---
Operative Report - Operative Report Date of Surgery/Procedure: 08/18/18 Time of Surgery/Procedure: 11:00 Surgeon: Dr. Bailey [place] Tender: Terrence Doughertyoza Anesthesia/Sedation: MAC Pre-Operative Diagnosis: Ischemia of the right hand from occlusion or stenosis of the right subclavian artery Post-Operative Diagnosis: 1) Occlusion of right subclavian artery from the origin of the subclavian artery to the origin of the vertebral artery. The distal subclavian artery appears to fill via retrograde flow from the right vertebral artery [Subclavian Steal] 2) Unsuccessful attempt at recanalization of the occluded segement of the right subclavian artery due to its tortuosity and length Indication for Surgery: 1) Ischemia to right upper extremity from occlusion / stenosis of the right subclavian artery Operative Findings: Pre-Operative Diagnosis: 1) Ischemia to right upper extremity from occlusion / stenosis of the right subclavian artery Post-Operative Diagnosis: 1) Occlusion of right subclavian artery from the origin of the subclavian artery to the origin of the vertebral artery. The distal subclavian artery appears to fill via retrograde flow from the right vertebral artery [Subclavian Steal] 2) Unsuccessful attempt at recanalization of the occluded segment of the right subclavian artery due to its tortuosity and length Procedure : Diagnostic Angiogram with attempted recanalization of occluded subclavian artery Referring Physician : Dr. Lora Date of Service : 08/18/18 Surgeon : Dr. Brennan Bailey Co-Surgeon: Dr. Lora Bridge Tender(s) : Diana Terrence Varma Consent : Informed consent was obtained for the procedure after discussing the potential risks and benefits of the procedure. Potential risks such as vascular injury, vascular occlusion, further stroke, intracranial hemorrhage and even were discussed. The benefits including obtaining information that would guide management were discussed. The alternatives including conservative management were discussed. After all questions were satisfactorily answered, the patient gave informed consent. Anesthesia : MAC Preoperative Medications : None Introduction : A timeout procedure was documented, the patient's name date of and medical record number as well as the procedures to be performed was confirmed by the entire team, after everyone in the room agreed, the procedure continued. After the patient was placed under anesthesia, both groins were prepped and draped in the usual sterile fashion.Using sterile Seldinger technique the right common femoral artery was punctured using a micropuncture kit. Over Microwire a 5 Grenadian sheath was introduced into the artery and then hooked up to a continuous heparinized flush system.Via the sheath a 5 Grenadian diagnostic Catheter was introduced over a 0.35 Terumo glide wire, into the abdominal aorta and the catheter was than double flushed. The following vessels were than sequentially selected, and digital angiographic acquisitions were than obtained. Vessels Selected : The brachiocephalic trunk was selected and thoracic views were obtained The subclavian artery was selected and injected with thoracic, shoulder, arm and forearm and hand views Diagnostic Imaging Findings : The diagnostic catheter was nvigated over the arch using the glide wire. The brachiocephalic trunk was selected and thoracic views were obtained. The innominate artery appears irregular without any significant stenosis. The right common carotid artery appears normal without any areas or irregularity or stenosis. There is no flow in the proximal segment of the right subclavian artery and it reconstitutes via retrograde flow from the right vertebral artery. INTERVENTION: Using roadmapping, an 035 glidewire was navigate into the brachiocephalic artery and attempts to enter the subclavian artery were unsuccessful. An 035 stiff glide catheter was then used but was again unsuccessful in making any progress into the occlusion An 038 glide catheter was then used and it was unable to enter the subclavian artery. At this time a decision was made to access the right radial artery. The right wrist was prepared and draped in the usual sterile manner. Ultrasound was used and the needle was placed in the radial artery but there was no flow out of the artery. A decision was made to puncture the axillary artery. The axilla was prepared and draped in the usual sterile manner and using ultrasound, the axillary artery was punctured with a micropuncture kit and over a 3 mm J wire, a 6F sheath was introduced into the axillary artery and connected to a heparinized flush system. A compy catheter was then introduced into the axillary artery ad flushed and hooked to a heparinized saline flush. The sheath was injected with thoracic views. The subclavian and axillary artery appear normal without any irregularity or stenosis The sheath was injected with arm views. The brachial artery appear normal without any irregularity or stenosis The sheath was injected with forearm and hand views. The ulnar artery appear normal without any irregularity or stenosis There is slow flow in the radial artery. An 035 stiff glide catheter was then navigated past the origin of the vertebral artery and made some progress into the occlusion. The catheter was advanced into the occlusion. At this time the stiff wire seemed to kick the catheter out and thus a regular 035 glide wire was used and appeared to make some more progress. Further attempts were then made with an advantage glide wire without much progress. A 25gm audio visual aids director wire was then used without any success. Attempts with a stiff glide catheter were also unsuccessful and thus a decision was made to abort the proces. Conclusion : Hemostasis was obtained using a 5F mynx device for the right common femoral artery and a 6F Mynx device for the righth axillary artery. The patient tolerated the procedure well and there were no complications. Intraoperative Medications : None Materials Utilized : Diagnostic Angiography kit Impression : 1) Occlusion of right subclavian artery from the origin of the subclavian artery to the origin of the vertebral artery. The distal subclavian artery appears to fill via retrograde flow from the right vertebral artery [Subclavian Steal] 2) Unsuccessful attempt at recanalization of the occluded segement of the right subclavian artery due to its tortuosity and length Please do not hesitate to contact me for any further questions or clarifications regarding this procedure or the patient at [phone] Brennan [facility] Diagnostic Cerebral Angiogram Estimated Blood Loss: 10 cc Complications: None Immediate Discharge & Condition: Pt being observed in recovery room and appears stable without any neurologicl deficits Procedure/Operation Description: Attempt at recanalization of the occluded segement of the right subclavian artery Estimated Blood Loss: 10 ml Complications: None Discharge & Condition: Pt was stable post procedure without any neurological deficits
--- NOTE | 2018-08-19 22:35 | CP.PCM.PN ---
Subjective - Date & Time of Evaluation Date of Evaluation: 08/19/18 Time of Evaluation: 07:41 - Subjective Subjective: dictated Objective - Vital Signs/Intake and Output Vital Signs (last 24 hours): Temp Pulse Resp BP Pulse Ox 98 F 88 18 117/70 94 L 08/19/18 15:04 08/19/18 16:00 08/19/18 15:04 08/19/18 15:04 08/19/18 15:04 Intake and Output: 08/19/18 08/20/18 18:59 06:59 Intake Total 250 Balance 250 - Medications Medications: Current Medications Aspirin (Ecotrin) 81 mg PO DAILY REPLACED BY [facility] Last Admin: 08/19/18 10:44 Dose: 81 mg Sodium Chloride (Sodium Chloride 0.9%) 1,000 mls @ 100 mls/hr IV .Q10H REPLACED BY [facility] Last Admin: 08/19/18 12:44 Dose: 100 mls/hr Sodium Chloride (Sodium Chloride 0.9%) 500 mls @ 75 mls/hr IV .Q6H40M REPLACED BY [facility] Last Admin: 08/18/18 22:03 Dose: Not Given Heparin Sodium/Sodium Chloride (Heparin 18873 Units/250ml 1/2 Normal Saline) 25,000 units in 250 mls @ 13.39 mls/hr IV .[id number] PRN; Protocol PRN Reason: PROTOCOL Last Admin: 08/19/18 17:25 Dose: 18 units/kg/hr, 13.39 mls/hr Labetalol HCl (Trandate) 100 mg PO BID REPLACED BY [facility] Last Admin: 08/19/18 17:36 Dose: 100 mg Rosuvastatin Calcium (Crestor) 20 mg PO HS REPLACED BY [facility] Last Admin: 08/19/18 21:31 Dose: 20 mg - Labs Labs: 08/19/18 07:31 08/19/18 07:31 PT 12.6 SECONDS (9.7-12.2) H 08/17/18 20:51 INR 1.2 08/17/18 20:51 APTT 73 SECONDS (21-34) H D 08/19/18 07:31
--- NOTE | 2018-08-19 22:35 | CP.PCM.PCO ---
Physician Communication Note - Physician Communication Note Physician Communication Note: medically satble for or average risk
[2018-08-20] MEDS: Sodium Chloride 0.9% 500 ML IV SCH (06:04)
[2018-08-20] MEDS: Sodium Chloride 0.9% 1,000 ML IV SCH ×2 (06:04→20:02)
[2018-08-20] MEDS ORDERED: ceFAZolin 1 gm in NS 2 GM/200 ML BAG IVPB ONE (06:56)
[2018-08-20] MEDS ORDERED: Thrombin Topical 20,000 Intl Units Spray Kit TOP ONE ×2 (06:57→14:09)
[2018-08-20] MEDS ORDERED: HEPARIN-NS 5,000 UNITS/500 ML 5,000 UNIT/500 ML BAG IV ONE (06:57)
[2018-08-20] MEDS ORDERED: Nitroglycerin 50mg in D5W 50 MG/250 ML BOTTLE IV ONE (07:54)
[2018-08-20 08:00] LABS: BASO % 0.5 % (0.0-2.0); EOS # 0.4 K/uL (0.0-0.7); EOS % 4.7 % (0.0-4.0); HEMOGLOBIN 13.4 g/dL (12.0-18.0); LYMPH % 21.5 % (20.0-40.0); MEAN CELL VOLUME 91.9 fL (80.0-94.0); MEAN CORPUSCULAR HEMOGLOBIN 30.6 pg (27.0-31.0); MEAN CORPUSCULAR HGB CONC 33.3 g/dL (33.0-37.0); MONO % 10.8 % (0.0-10.0); NEUT # 5.7 K/uL (1.8-7.0); NEUT % 62.5 % (50.0-75.0); RBC 4.38 Mil/uL (4.40-5.90); RED CELL DISTRIBUTION WIDTH 13.9 % (11.5-14.5); WHITE BLOOD COUNT 9.1 K/uL (4.8-10.8)
[2018-08-20 08:03] LABS: INR 1.1; PROTHROMBIN TIME 12.5 SECONDS (9.7-12.2)
[2018-08-20 08:23] LABS: ALB/GLOB RATIO 1.1 (1.0-2.1); ALBUMIN 3.5 g/dL (3.5-5.0); ALT/SGPT 10 U/L (21-72); AST/SGOT 23 U/L (17-59); BLOOD UREA NITROGEN 13 mg/dL (9-20); GFR NON-AFRICAN AMERICAN > 60
[2018-08-20] MEDS ORDERED: Rocuronium 10 mg/ml (10 ml) ONE (08:57)
[2018-08-20] MEDS ORDERED: Phenylephrine 10 mg/ml Inj ONE ×2 (10:14→14:15)
[2018-08-20] MEDS ORDERED: Neostigmine 1:1000 (1 mg/ml) Inj ONE ×2 (11:28→14:37)
[2018-08-20] MEDS ORDERED: Morphine 4 MG/ML VIAL IVP PRN (11:47)
--- NOTE | 2018-08-20 11:53 | PCM.SURG1 ---
Surgeon's Initial Post Op Note - Surgeon's Notes Surgeon: Dr. Lora Multimedia Project Manager: Dr. Hassan PGY-3, Ronaldo Byers MS3 Type of Anesthesia: General Endo Pre-Operative Diagnosis: Right Subclavian artery stenosis Operative Findings: See operative report Post-Operative Diagnosis: Same Operation Performed: Right Subclavian to Carotid Artery Bypass with Dacron Graft Specimen/Specimens Removed: none Estimated Blood Loss: EBL {In ML}: 300 Blood Products Given: N/A Drains Used: No Drains Post-Op Condition: Good Date of Surgery/Procedure: 08/20/18 Time of Surgery/Procedure: 11:53
[2018-08-20] MEDS ORDERED: HYDROmorphone 0.5 mg/0.5 ml ISec IVP PRN ×2 (12:00→14:55)
[2018-08-20] MEDS ORDERED: Etomidate 20 mg/10ml Inj IV ONE (13:59)
--- NOTE | 2018-08-20 13:59 | CARD ---
APPROVED REPORT Date of service: 08/18/2018 EKG Measurement Heart [id number] MA [id number] <Conclusion> Normal sinus rhythm Minimal voltage criteria for LVH, may be normal variant Nonspecific T wave abnormality Prolonged QT Abnormal ECG
--- NOTE | 2018-08-20 14:00 | CARD ---
APPROVED REPORT Date of service: 08/17/2018 EKG Measurement Heart [id number] <Conclusion> Normal sinus rhythm LVH with repolarization abnormality Prolonged QT Abnormal ECG
--- NOTE | 2018-08-20 14:00 | CARD ---
APPROVED REPORT Date of service: 08/17/2018 EKG Measurement Heart [id number] MD [id number] <Conclusion> Sinus tachycardia Possible Left atrial enlargement Left ventricular hypertrophy Nonspecific T wave abnormality Abnormal ECG
[2018-08-20] MEDS: ceFAZolin 1 gm in NS 1 GM/100 ML BAG IVPB ONE ×2 (14:02→14:22)
[2018-08-20] MEDS ORDERED: ePHEDrine 50 mg/ml Inj ONE (14:19)
--- NOTE | 2018-08-20 14:52 | PCM.SURG1 ---
Surgeon's Initial Post Op Note - Surgeon's Notes Surgeon: Dr. Lora Timber Poisoner: Dr. Hassan PGY-3, Elmira Adams MS3 Type of Anesthesia: General Endo Pre-Operative Diagnosis: R neck hematoma s/p R Carotid-Subclavian artery bypass Operative Findings: Small amount of hematoma noted with no active bleeding Post-Operative Diagnosis: Same Operation Performed: Exploration of R neck wound Specimen/Specimens Removed: hematoma Estimated Blood Loss: EBL {In ML}: 50 Blood Products Given: N/A Drains Used: Leonel Post-Op Condition: Good Date of Surgery/Procedure: 08/20/18 Time of Surgery/Procedure: 14:51
--- NOTE | 2018-08-20 14:57 | OP ---
PROCEDURE DATE: 08/20/2018 PREOPERATIVE DIAGNOSIS: Wrist pain, right hand. PROCEDURE CARRIED OUT: Right common carotid to right subclavian artery bypass using 8 mm Dacron graft, Hemashield graft. SURGEON: Varun Lora Jr., MD SENIOR [employer] ADMINISTRATOR: Sonali Hassan DO ANESTHESIOLOGIST: Dr. Mishra. INDICATIONS: The patient is a 67-year-old man admitted to the hospital with severe pain in his right hand via the emergency room. He underwent evaluation including cardiac evaluation and was found to have absent radial pulse. In addition, the brachial pulse was absent. 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 Attempts at crossing this both from the arm and from the groin were unsuccessful. Because of this and because of the continued pain in the hand, I recommended he undergo surgery. OPERATIVE FINDINGS: The bypass was done using an 8 mm Dacron graft from the right common carotid artery to the subclavian artery above the clavicle. BLOOD LOSS TO THE PROCEDURE: 250 to 300 mL. At the end of the procedure, the patient had excellent Doppler signals in the ulnar artery and a palpable brachial pulse. There was not a palpable radial pulse. DESCRIPTION OF PROCEDURE: The patient was given general anesthesia, intravenous antibiotics, standard skin prep was carried out. An incision was made above the clavicle and the common carotid, subclavian artery were all identified. The phrenic nerve was identified and preserved. After exposure of the vessels, heparin was given. The subclavian anastomosis was done first using loupe magnification, heparin anticoagulation, and loop control. The anastomosis was carried out using 5-0 Prolene sutures to the Dacron graft. This was then brought and anastomosed in the neck in the lower part of the neck to the common carotid artery, again same technique. The appropriate flushing maneuvers were taken so there was not any debris or flush up to the brain. After this had been finished, we then closed the arteriotomy, obtained hemostasis, and closed the neck wound. Blood loss to procedure was 250 to 300 mL. Heparin was not reversed at the end of the procedure. The wound was quite dry at the end of the procedure. OPERATION CARRIED OUT: Right carotid subclavian artery bypass using 8 mm Dacron graft. Varnu Lora Jr., MD cc: Ty Adams MD
[2018-08-20] MEDS ORDERED: Sodium Chloride 0.9% 1,000 ML IV ONE (18:25)
[2018-08-20] MEDS: Oxycodone/Acetaminophen 5/325 mg Tab PO PRN (19:22)
--- NOTE | 2018-08-20 21:27 | CP.PCM.PN ---
Subjective - Date & Time of Evaluation Date of Evaluation: 08/20/18 Time of Evaluation: 21:24 - Subjective Subjective: Patient was seen and examined at bedside. Patient s/p Right Carotid SCL bypass Physical Examination - Constitutional Appears: No Acute Distress - Head Exam Head Exam: ATRAUMATIC, NORMAL INSPECTION - Eye Exam Eye Exam: EOMI, Normal appearance - ENT Exam ENT Exam: Mucous Membranes Moist - Respiratory Exam Respiratory Exam: Clear to Ausculation Bilateral, NORMAL BREATHING PATTERN - Cardiovascular Exam Cardiovascular Exam: REGULAR RHYTHM, +S1, +S2 - GI/Abdominal Exam GI & Abdominal Exam: Soft, Normal Bowel Sounds. absent: Tenderness - Extremities Exam Additional comments: Righ 2nd-3rd DIP - bluish, cold Assessment and Plan - Assessment and Plan (Free Text) Assessment: Patient s/p Right Carotid Subclavian bypass Pain in Right Digits 2-4 Secondary to Occluded right subclavian artery - Vascular Surgery: Dr. Lora --> help appreciated - s/p 08/18/18 Diagnostic Angiogram with Attempted recancalization of occluded right subclavian artery - Pending Cardiac Optimization: - ECHO (08/18/18): reviewed with Dr. Diaz - Normal - Trop negative x3 History of HTN - Continue Labetalol 100mg po bid History of HDL - Lipid Panel: Total Cholesterol 189; LDL 122; HDL 55; Triglycerides 82 - Continue Crestor 20mg po HS Objective - Vital Signs/Intake and Output Vital Signs (last 24 hours): Temp Pulse Resp BP Pulse Ox 99.2 F 102 H 24 151/100 H 100 08/20/18 14:50 08/20/18 15:10 08/20/18 15:10 08/20/18 15:10 08/20/18 15:10 Intake and Output: 08/20/18 08/21/18 18:59 06:59 Intake Total 4050 Output Total 1400 Balance 2650 - Medications Medications: Current Medications Aspirin (Ecotrin) 81 mg PO DAILY [facility] Last Admin: 08/20/18 09:04 Dose: Not Given Clopidogrel Bisulfate (Plavix) 75 mg PO DAILY [facility] Docusate Sodium (Colace) 100 mg PO BID [facility] Sodium Chloride (Sodium Chloride 0.9%) 500 mls @ 75 mls/hr IV .Q6H40M [facility] Last Admin: 08/20/18 06:04 Dose: Not Given Cefazolin Sodium 500 mg/ (Sodium Chloride) 50 mls @ 100 mls/hr IVPB Q8H [facility]; Protocol Stop: 08/21/18 16:01 Labetalol HCl (Trandate) 100 mg PO BID [facility] Last Admin: 08/20/18 09:03 Dose: Not Given Morphine Sulfate (Morphine) 4 mg IVP Q4 PRN PRN Reason: Pain, severe (8-10) Oxycodone/Acetaminophen (Percocet 5/325 Mg Tab) 1 tab PO Q4H PRN PRN Reason: Pain, moderate (4-7) Stop: 08/23/18 11:49 Last Admin: 08/20/18 19:22 Dose: 1 tab Rosuvastatin Calcium (Crestor) 20 mg PO HS [facility] Last Admin: 08/19/18 21:31 Dose: 20 mg - Labs Labs: 08/20/18 07:48 08/20/18 07:48 PT 12.5 SECONDS (9.7-12.2) H 08/20/18 07:48 INR 1.1 08/20/18 07:48 APTT 28 SECONDS (21-34) D 08/20/18 07:48
--- NOTE | 2018-08-20 22:11 | CP.PCM.PN ---
Subjective - Date & Time of Evaluation Date of Evaluation: 08/20/18 Time of Evaluation: 15:20 - Subjective Subjective: dictated Objective - Vital Signs/Intake and Output Vital Signs (last 24 hours): Temp Pulse Resp BP Pulse Ox 101.3 F H 117 H 23 113/79 100 08/20/18 19:30 08/20/18 19:30 08/20/18 19:30 08/20/18 19:30 08/20/18 19:30 Intake and Output: 08/20/18 08/21/18 18:59 06:59 Intake Total 4250 250 Output Total 1400 Balance 2850 250 - Medications Medications: Current Medications Aspirin (Ecotrin) 81 mg PO DAILY [facility] Last Admin: 08/20/18 09:04 Dose: Not Given Clopidogrel Bisulfate (Plavix) 75 mg PO DAILY [facility] Docusate Sodium (Colace) 100 mg PO BID [facility] Sodium Chloride (Sodium Chloride 0.9%) 500 mls @ 75 mls/hr IV .Q6H40M [facility] Last Admin: 08/20/18 06:04 Dose: Not Given Cefazolin Sodium 500 mg/ (Sodium Chloride) 50 mls @ 100 mls/hr IVPB Q8H [facility]; Protocol Stop: 08/21/18 16:01 Labetalol HCl (Trandate) 100 mg PO BID [facility] Last Admin: 08/20/18 09:03 Dose: Not Given Morphine Sulfate (Morphine) 4 mg IVP Q4 PRN PRN Reason: Pain, severe (8-10) Oxycodone/Acetaminophen (Percocet 5/325 Mg Tab) 1 tab PO Q4H PRN PRN Reason: Pain, moderate (4-7) Stop: 08/23/18 11:49 Last Admin: 08/20/18 19:22 Dose: 1 tab Rosuvastatin Calcium (Crestor) 20 mg PO HS [facility] Last Admin: 08/20/18 22:01 Dose: 20 mg - Labs Labs: 08/20/18 07:48 08/20/18 07:48 PT 12.5 SECONDS (9.7-12.2) H 08/20/18 07:48 INR 1.1 08/20/18 07:48 APTT 28 SECONDS (21-34) D 08/20/18 07:48
--- NOTE | 2018-08-20 22:27 | CP.PCM.CON ---
History of Present Illness - History of Present Illness History of Present Illness: CCM 67 yo male with hx HTN/HLD /+ smoker adm. c/o R 3&4 finger pain. Pt found with SC artery occlusion. Today underwent R Subclavian -carotid artery bypass. Taken back to OR for hematoma. Now in ICU denied pain /sob /n /v. ROS- as noted All- NKDA Social- +tob/+etoh/ no drugs Meds- reviewed FH- Unknown Meds- reviewed FH- Unknown PE T-101.3 P-110 R-20 BP-119/79 Neck- R neck-supraclavicular dressing & LINA Lungs- bilat bs Heart-rr aBd- benign eXt- nontender Neuro- nonfocal Labs-reviewed A&P s/p R Subclavian-Carotid Bypass HTN HLD +Smoker cont meds analgesia prn BP control maintain optimal lytes f/u labs pulse checks Past Patient History - Past Medical History & Family History Past Medical History?: Yes - Past Social History Smoking Status: Light Smoker < 10 Cigarettes Daily - CARDIAC Hx Hypercholesterolemia: Yes Hx Hypertension: Yes - MUSCULOSKELETAL/RHEUMATOLOGICAL Hx Falls: No - PSYCHIATRIC Hx Substance Use: No - SURGICAL HISTORY Hx Surgeries: Yes Hx Herniorrhaphy: Yes - ANESTHESIA Hx Anesthesia: Yes Hx Anesthesia Reactions: No Hx Malignant Hyperthermia: No Has any member of the family had a problem w/ anesthesia?: No Meds Allergies/Adverse Reactions: Allergies Allergy/AdvReac Type Severity Reaction Status Date / Time No Known Allergies Allergy Verified 08/17/18 11:52 - Medications Medications: Current Medications Aspirin (Ecotrin) 81 mg PO DAILY [facility] Last Admin: 08/20/18 09:04 Dose: Not Given Clopidogrel Bisulfate (Plavix) 75 mg PO DAILY [facility] Docusate Sodium (Colace) 100 mg PO BID [facility] Sodium Chloride (Sodium Chloride 0.9%) 500 mls @ 75 mls/hr IV .Q6H40M [facility] Last Admin: 08/20/18 06:04 Dose: Not Given Cefazolin Sodium 500 mg/ (Sodium Chloride) 50 mls @ 100 mls/hr IVPB Q8H [facility]; Protocol Stop: 08/21/18 16:01 Labetalol HCl (Trandate) 100 mg PO BID [facility] Last Admin: 08/20/18 09:03 Dose: Not Given Morphine Sulfate (Morphine) 4 mg IVP Q4 PRN PRN Reason: Pain, severe (8-10) Oxycodone/Acetaminophen (Percocet 5/325 Mg Tab) 1 tab PO Q4H PRN PRN Reason: Pain, moderate (4-7) Stop: 08/23/18 11:49 Last Admin: 08/20/18 19:22 Dose: 1 tab Rosuvastatin Calcium (Crestor) 20 mg PO HS [facility] Last Admin: 08/20/18 22:01 Dose: 20 mg Results - Vital Signs Recent Vital Signs: Last Vital Signs Temp 101.3 F H 08/20/18 19:30 Pulse 117 H 08/20/18 19:30 Resp 23 08/20/18 19:30 BP 113/79 08/20/18 19:30 Pulse Ox 100 08/20/18 19:30 - Labs Result Diagrams: 08/20/18 07:48 08/20/18 07:48 Labs: Laboratory Results - last 24 hr 08/20/18 08/20/18 08/20/18 07:48 07:48 07:48 WBC 9.1 RBC 4.38 L Hgb 13.4 Hct 40.3 MCV 91.9 MCH 30.6 MCHC 33.3 RDW 13.9 Plt Count 217 MPV 8.0 Neut % (Auto) 62.5 Lymph % (Auto) 21.5 Milam % (Auto) 10.8 H Eos % (Auto) 4.7 H Baso % (Auto) 0.5 Neut # (Auto) 5.7 Lymph # (Auto) 2.0 Milam # (Auto) 1.0 H Eos # (Auto) 0.4 Baso # (Auto) 0.0 PT 12.5 H INR 1.1 APTT 28 D Sodium 133 Potassium 3.8 Chloride 104 Carbon Dioxide 22 Anion Gap 12 BUN 13 Creatinine 0.8 Est GFR ( Amer) > 60 Est GFR (Non-Af Amer) > 60 Random Glucose 99 Calcium 8.0 L Phosphorus 2.3 L Magnesium 2.0 Total Bilirubin 0.7 AST 23 ALT 10 L Alkaline Phosphatase 97 Total Protein 6.9 Albumin 3.5 Globulin 3.3 Albumin/Globulin Ratio 1.1 Blood Type Antibody Screen 08/20/18 07:48 WBC RBC Hgb Hct MCV MCH MCHC RDW Plt Count MPV Neut % (Auto) Lymph % (Auto) Milam % (Auto) Eos % (Auto) Baso % (Auto) Neut # (Auto) Lymph # (Auto) Milam # (Auto) Eos # (Auto) Baso # (Auto) PT INR APTT Sodium Potassium Chloride Carbon Dioxide Anion Gap BUN Creatinine Est GFR ( Amer) Est GFR (Non-Af Amer) Random Glucose Calcium Phosphorus Magnesium Total Bilirubin AST ALT Alkaline Phosphatase Total Protein Albumin Globulin Albumin/Globulin Ratio Blood Type O POSITIVE Antibody Screen Negative Assessment & Plan (1) Arterial occlusion Status: Acute (2) Subclavian bypass stenosis Status: Acute (3) Hypertension Status: Chronic (4) HLD (hyperlipidemia) Status: Chronic
--- NOTE | 2018-08-21 03:40 | PN ---
DATE: 08/20/2018SUBJECTIVE: Status post OR. The patient has postop fever. administrative resident is aware. The patient had intervention on his right upper extremity for vascular obstruction. The patient feels better. He has good pulses in the right hand and he has warm upper extremity. The patient had to be taken second time to OR to remove a hematoma of 50 mL at the postoperative site on the upper extremity. The patient is febrile, 102. Tachycardiac. No shortness of breath. No nausea, vomiting. He is in the ICU. PHYSICAL EXAMINATION: VITAL SIGNS: Blood pressure 113/79, pulse 117, respiratory rate 23, temperature 101.3. LUNGS: Clear. CARDIOVASCULAR SYSTEM: S1 and S2. Tachycardiac. ABDOMEN: Soft. Nontender. Bowel sounds are positive. ASSESSMENT: 1. Right upper extremity occlusive disease, status post operative room visit. 2. Hyperthermia, etiology of hyperthermia could be postoperative due to anesthesia and unlikely could be acute septicemia. 3. Hyperlipidemia. PLAN: ICU care. Monitor the patient for fever. Monitor the patient for any signs of cardiorespiratory compromise. The patient is medically stable. We will monitor the patient. Ty Adams MD
[2018-08-21] MEDS: Oxycodone/Acetaminophen 5/325 mg Tab PO PRN (05:02)
[2018-08-21] MEDS: Sodium Chloride 0.9% 500 ML IV SCH (06:00)
--- NOTE | 2018-08-21 06:00 | OP ---
PROCEDURE DATE: 08/20/2018 PREOPERATIVE DIAGNOSIS: Possible hematoma of left neck. PROCEDURE CARRIED OUT: Exploration of neck, evacuation of 50 to 100 mL hematoma, and insertion of drain. SURGEON: Varun Lora Jr., MD TRANSCRIBER: Sonali Hassan DO. ANESTHESIOLOGIST: Dr. Mishra. INDICATIONS: The patient is a man who underwent a carotid to subclavian bypass earlier today. There was suspicion of some hematoma in the neck in the recovery room because he was taken back for exploration. OPERATIVE FINDINGS: There was no active bleeding. There was a 50 to 100 mL hematoma, which was evacuated of clotted blood. Drain was placed and the procedure was terminated. Thorough inspection of all the anastomoses was carried out without any evidence of any active bleeding. The wound was then re-closed. Antibiotics had been given and usual precautionary measures. Varun Lora Jr., MD
[2018-08-21 06:02] LABS: HEMOGLOBIN 11.6 g/dL (12.0-18.0); MEAN CELL VOLUME 92.8 fL (80.0-94.0); MEAN CORPUSCULAR HGB CONC 33.4 g/dL (33.0-37.0); MEAN PLATELET VOLUME 8.4 fL (7.2-11.7); RBC 3.76 Mil/uL (4.40-5.90); RED CELL DISTRIBUTION WIDTH 13.8 % (11.5-14.5); WHITE BLOOD COUNT 13.2 K/uL (4.8-10.8)
[2018-08-21 06:09] LABS: BLOOD UREA NITROGEN 8 mg/dL (9-20); CALCIUM 7.6 mg/dl (8.6-10.4); GFR NON-AFRICAN AMERICAN > 60
[2018-08-21] MEDS ORDERED: Labetalol 25mg/5ml Syringe IVP STA (06:43)
--- NOTE | 2018-08-21 08:16 | RAD ---
Date of service: 08/20/2018 HISTORY: tachy cardia COMPARISON: Chest radiographs 08/17/2018. FINDINGS: LUNGS: The examination appears to been captured and expiration. Crowding of the bronchovascular markings identified in the bilateral bases with left hemidiaphragm elevation again evident mildly. No acute infiltrate bilaterally. PLEURA: No significant pleural effusion identified, no pneumothorax apparent. CARDIOVASCULAR: No aortic atherosclerotic calcification present. Normal cardiac size. No pulmonary vascular congestion. OSSEOUS STRUCTURES: No significant abnormalities. VISUALIZED UPPER ABDOMEN: Normal. OTHER FINDINGS: None. IMPRESSION: Limited exam due to end expiration type projection. No acute cardiopulmonary disease appreciable in the interval.
--- NOTE | 2018-08-21 10:59 | CP.PCM.PN ---
Subjective - Date & Time of Evaluation Date of Evaluation: 08/21/18 Time of Evaluation: 07:00 - Subjective Subjective: Vascular Surgery: Dr. Lora Pt seen and examined. No acute overnight events. s/p R Carotid-Subclavian artery bypass; POD#1. Pt states he feels well this morning and pain is well controlled. He denies any complaints at this time. Tolerating diet, denies fevers/chills. Objective - Vital Signs/Intake and Output Vital Signs (last 24 hours): Temp Pulse Resp BP Pulse Ox 97.8 F 97 H 22 129/87 99 08/21/18 08:00 08/21/18 09:00 08/21/18 09:00 08/21/18 09:00 08/21/18 09:00 Intake and Output: 08/21/18 08/21/18 06:59 18:59 Intake Total 1920 225 Output Total 1225 Balance 695 225 - Medications Medications: Current Medications Aspirin (Ecotrin) 81 mg PO DAILY [facility] Last Admin: 08/21/18 09:23 Dose: 81 mg Clopidogrel Bisulfate (Plavix) 75 mg PO DAILY [facility] Last Admin: 08/21/18 09:23 Dose: 75 mg Docusate Sodium (Colace) 100 mg PO BID [facility] Last Admin: 08/21/18 09:23 Dose: 100 mg Sodium Chloride (Sodium Chloride 0.9%) 500 mls @ 75 mls/hr IV .Q6H40M [facility] Last Admin: 08/21/18 06:00 Dose: 75 mls/hr Cefazolin Sodium 500 mg/ (Sodium Chloride) 50 mls @ 100 mls/hr IVPB Q8H [facility]; Protocol Stop: 08/21/18 16:01 Last Admin: 08/21/18 00:00 Dose: 100 mls/hr Labetalol HCl (Trandate) 100 mg PO BID [facility] Last Admin: 08/21/18 09:32 Dose: 100 mg Oxycodone/Acetaminophen (Percocet 5/325 Mg Tab) 1 tab PO Q4H PRN PRN Reason: Pain, moderate (4-7) Stop: 08/23/18 11:49 Last Admin: 08/21/18 05:02 Dose: 1 tab Potassium Chloride (K-Dur 20 Meq Er Tab) 20 meq PO DAILY [facility] Rosuvastatin Calcium (Crestor) 20 mg PO HS [facility] Last Admin: 08/20/18 22:01 Dose: 20 mg - Labs Labs: 08/21/18 05:49 08/21/18 05:47 PT 12.5 SECONDS (9.7-12.2) H 08/20/18 07:48 INR 1.1 08/20/18 07:48 APTT 28 SECONDS (21-34) D 08/20/18 07:48 - Constitutional Appears: Well, No Acute Distress - Head Exam Head Exam: ATRAUMATIC, NORMOCEPHALIC - Eye Exam Eye Exam: Normal appearance - ENT Exam ENT Exam: Mucous Membranes Moist - Neck Exam Additional comments: R neck with dressing clean/dry intact, no swelling noted. Jose drain with minimal output - Respiratory Exam Respiratory Exam: NORMAL BREATHING PATTERN - Cardiovascular Exam Cardiovascular Exam: Tachycardia, RRR - GI/Abdominal Exam GI & Abdominal Exam: Soft - Neurological Exam Neurological Exam: Alert, Awake, Oriented x3 - Skin Skin Exam: Dry, Warm Assessment and Plan - Assessment and Plan (Free Text) Assessment: 67M s/p R subclavian-carotid bypass with dacron graft for subclavian artery stenosis; POD#1 Plan: - DC jose drain - ok to DC from surgical standpoint - f/u with Dr. Lora in 1-2 weeks Sonya
[2018-08-21] MEDS: Potassium Chloride 20 mEq ER Tab PO SCH (12:15)
--- NOTE | 2018-08-21 12:35 | CARD ---
APPROVED REPORT Date of service: 08/20/2018 EKG Measurement Heart [id number] <Conclusion> Sinus tachycardia Left ventricular hypertrophy Abnormal ECG
--- NOTE | 2018-08-21 17:47 | CARD ---
APPROVED REPORT Date of service: 08/19/2018 Protocol: LEXISCAN Test Type: LEXISCAN STRESS Test Indications: CP Medications: LIST Target HR: 155 bpm Resting ECG: NSR W/ NS ST T CHANGES Resting Heart Rate: 90 bpm Resting Blood Pressure: 136/80mmHg submaximum (85%): 132 bpm TEST SUMMARY PREINFSNHYPERV.07:190.00..[id number]/80.0. INFUSIONDOSE 100:300.00.01.0100/.0. XEXTGQUGJ66:360.00..[id number]/80.0. PROCEDURE Pharmacologic stress testing was performed using 0.4mg per 5ml of regadenoson given intravenously over 7-10 seconds. POST EXERCISE Reason for Termination: Protocol Completed Target HR: No Max HR: 100 bpm 78% of Maximum Predicted HR: 155 bpm Exercise duration: 00:30 min:sec, 0 Stage Exercise capacity: 1.0METs Max Blood Pressure: 136/80mmHg Blood Pressure response to exercise: normal resting BP - appropriate response Heart Rate response to exercise: appropriate Chest Pain: No, none Angina index: 0 Arrhythmia: No, none ST Change: Yes, FLATTENED ST SEGMENT IN V5-V6 Deviation: 0 mm INTERPRETATION Stress EKG Conclusion: NEGATIVE LEXISCAN STRESS TEST NORMAL BP RESPONSE TO LEXISCAN NUCLEAR STUDIES TO BE READ SEPARATELY EXAM: Myocardial Perfusion STRESS/REST Imaging Protocol The imaging protocol used to acquire images was Stress Tc-99m/rest Tc-99m 1 day Rest Spect myocardial perfusion imaging was performed in supine position 45 minutes following the injection of 32.4 mCi of Tc-99 Myoview. Gated Stress Spect was performed 45 minutes after intravenous 13.1 mCi Tc-99 Myoview injection. The images were gated to evaluate regional wall motion and calculate ventricular ejection fraction.Images were reconstructed using backfilter projection method in short horizontal and verticle long axis. Spect slices were generated. RESTING DATA EDV71.03djTG9.70L/min ESV27.00mlMyocardial Bfsp923.00g Av. Heart Rate82.00bpm EF62.00% STRESS DATA EDV90.73efSP9.10L/min ESV35.00mlMyocardial Yytq276.00g EF61.00% Regional WT score at stress:3.00 Regional WM score at stress:0.00 Summed WT score at stress:20.00 Av. Heart Rate91.00bpmSummed WM score at stress:10.00 LV Perf. Quant 17 Seg. SSS0.00 17 Seg. SRS4.00 17 Seg. SDS0.00 Stress Defect Extent (% LAD)0.00Rest Defect Extent (% LAD)0.00Rev. Defect Extent (% LAD)0.00 Stress Defect Extent (% LCX)8.80Rest Defect Extent (% LCX)25.00Rev. Defect Extent (% LCX)0.00 Stress Defect Extent (% RCA)0.00Rest Defect Extent (% RCA)0.00Rev. Defect Extent (% RCA)0.00 Stress Defect Extent (% SETH)1.50Rest Defect Extent (% SETH)4.30Rev. Defect Extent (% SETH)0.00 IMPRESSION Normal Myocardial Perfusion exercise stress study Left Ventricle LV Function:Left ventricle systolic function is normal. The Ejection Fraction is 60-65%. Regional Wall Motion:There is normal left ventricular wall motion. Metabolism/Perfusion Defects: There is no stress-induced ischemia noted. Conclusion 1. There is no stress-induced ischemia noted. 2. Left ventricle systolic function is normal. 3. The Ejection Fraction is 60-65%.
--- NOTE | 2018-08-21 21:28 | CP.PCM.PN ---
Subjective - Date & Time of Evaluation Date of Evaluation: 08/21/18 Time of Evaluation: 07:40 - Subjective Subjective: dictated Objective - Vital Signs/Intake and Output Vital Signs (last 24 hours): Temp Pulse Resp BP Pulse Ox 98.0 F 114 H 26 H 123/88 99 08/21/18 16:00 08/21/18 18:05 08/21/18 18:05 08/21/18 18:05 08/21/18 16:00 Intake and Output: 08/21/18 08/22/18 18:59 06:59 Intake Total 3425 Output Total 1200 Balance 2225 - Medications Medications: Current Medications Aspirin (Ecotrin) 81 mg PO DAILY [facility] Last Admin: 08/21/18 09:23 Dose: 81 mg Clopidogrel Bisulfate (Plavix) 75 mg PO DAILY [facility] Last Admin: 08/21/18 09:23 Dose: 75 mg Docusate Sodium (Colace) 100 mg PO BID [facility] Last Admin: 08/21/18 18:06 Dose: 100 mg Heparin Sodium (Porcine) (Heparin) 5,000 units SC Q8 [facility] Labetalol HCl (Trandate) 100 mg PO BID [facility] Last Admin: 08/21/18 18:05 Dose: 100 mg Oxycodone/Acetaminophen (Percocet 5/325 Mg Tab) 1 tab PO Q4H PRN PRN Reason: Pain, moderate (4-7) Stop: 08/23/18 11:49 Last Admin: 08/21/18 05:02 Dose: 1 tab Potassium Chloride (K-Dur 20 Meq Er Tab) 20 meq PO DAILY [facility] Last Admin: 08/21/18 12:15 Dose: 20 meq Rosuvastatin Calcium (Crestor) 20 mg PO HS [facility] Last Admin: 08/20/18 22:01 Dose: 20 mg - Labs Labs: 08/21/18 05:49 08/21/18 05:47 PT 12.5 SECONDS (9.7-12.2) H 08/20/18 07:48 INR 1.1 08/20/18 07:48 APTT 28 SECONDS (21-34) D 08/20/18 07:48
--- NOTE | 2018-08-22 02:30 | PN ---
DATE: 08/21/2018 SUBJECTIVE: The patient is feeling better. Status post OR. His fever has subsided. He is tachycardiac. He is in the chair. On physiotherapy. No fever, no chills. No nausea or vomiting. PHYSICAL EXAMINATION: VITAL SIGNS: Blood pressure 123/88, pulse 119, respiratory rate 18, temperature 99. LUNGS: Clear. No rales, no rhonchi. CARDIOVASCULAR SYSTEM: S1 and S2, regular. ABDOMEN: Soft. Nontender. Bowel sounds are positive. ASSESSMENT: 1. Status post bypass, right upper extremity due to peripheral arterial disease. 2. Hyperlipidemia. PLAN: Continue postop care. Monitor the patient. Ty Adams MD
--- NOTE | 2018-08-22 04:50 | CP.PCM.PN ---
Subjective - Date & Time of Evaluation Date of Evaluation: 08/21/18 Time of Evaluation: 20:20 - Subjective Subjective: Pt seen and examined. No acute overnight events. s/p R Carotid-Subclavian artery bypass; POD#1. No cardiac symptoms Objective - Vital Signs/Intake and Output Vital Signs (last 24 hours): Temp Pulse Resp BP Pulse Ox 97.8 F 97 H 22 129/87 99 08/21/18 08:00 08/21/18 09:00 08/21/18 09:00 08/21/18 09:00 08/21/18 09:00 Intake and Output: 08/21/18 08/21/18 06:59 18:59 Intake Total 1920 225 Output Total 1225 Balance 695 225 - Medications Medications: Current Medications Aspirin (Ecotrin) 81 mg PO DAILY [facility] Last Admin: 08/21/18 09:23 Dose: 81 mg Clopidogrel Bisulfate (Plavix) 75 mg PO DAILY [facility] Last Admin: 08/21/18 09:23 Dose: 75 mg Docusate Sodium (Colace) 100 mg PO BID [facility] Last Admin: 08/21/18 09:23 Dose: 100 mg Sodium Chloride (Sodium Chloride 0.9%) 500 mls @ 75 mls/hr IV .Q6H40M [facility] Last Admin: 08/21/18 06:00 Dose: 75 mls/hr Cefazolin Sodium 500 mg/ (Sodium Chloride) 50 mls @ 100 mls/hr IVPB Q8H [facility]; Protocol Stop: 08/21/18 16:01 Last Admin: 08/21/18 00:00 Dose: 100 mls/hr Labetalol HCl (Trandate) 100 mg PO BID [facility] Last Admin: 08/21/18 09:32 Dose: 100 mg Oxycodone/Acetaminophen (Percocet 5/325 Mg Tab) 1 tab PO Q4H PRN PRN Reason: Pain, moderate (4-7) Stop: 08/23/18 11:49 Last Admin: 08/21/18 05:02 Dose: 1 tab Potassium Chloride (K-Dur 20 Meq Er Tab) 20 meq PO DAILY [facility] Rosuvastatin Calcium (Crestor) 20 mg PO HS [facility] Last Admin: 08/20/18 22:01 Dose: 20 mg - Labs Labs: 08/21/18 05:49 08/21/18 05:47 PT 12.5 SECONDS (9.7-12.2) H 08/20/18 07:48 INR 1.1 08/20/18 07:48 APTT 28 SECONDS (21-34) D 08/20/18 07:48 - Constitutional Appears: Well, No Acute Distress - Head Exam Head Exam: ATRAUMATIC, NORMOCEPHALIC - Eye Exam Eye Exam: Normal appearance - ENT Exam ENT Exam: Mucous Membranes Moist - Neck Exam Additional comments: R neck with dressing clean/dry intact, no swelling noted. Leonel drain with minimal output - Respiratory Exam Respiratory Exam: NORMAL BREATHING PATTERN - Cardiovascular Exam Cardiovascular Exam: Tachycardia, RRR - GI/Abdominal Exam GI & Abdominal Exam: Soft - Neurological Exam Neurological Exam: Alert, Awake, Oriented x3 - Skin Skin Exam: Dry, Warm Assessment and Plan - Assessment and Plan (Free Text) Assessment: 67M s/p R subclavian-carotid bypass with dacron graft for subclavian artery stenosis; POD#1 Plan: Objective - Vital Signs/Intake and Output Vital Signs (last 24 hours): Temp Pulse Resp BP Pulse Ox 97.9 F 88 17 110/67 97 08/22/18 00:00 08/22/18 00:00 08/22/18 00:00 08/22/18 00:00 08/22/18 00:00 Intake and Output: 08/21/18 08/22/18 18:59 06:59 Intake Total 3425 360 Output Total 1200 200 Balance 2225 160 - Medications Medications: Current Medications Aspirin (Ecotrin) 81 mg PO DAILY [facility] Last Admin: 08/21/18 09:23 Dose: 81 mg Clopidogrel Bisulfate (Plavix) 75 mg PO DAILY [facility] Last Admin: 08/21/18 09:23 Dose: 75 mg Docusate Sodium (Colace) 100 mg PO BID [facility] Last Admin: 08/21/18 18:06 Dose: 100 mg Heparin Sodium (Porcine) (Heparin) 5,000 units SC Q8 [facility] Last Admin: 08/21/18 23:00 Dose: 5,000 units Labetalol HCl (Trandate) 100 mg PO BID [facility] Last Admin: 08/21/18 18:05 Dose: 100 mg Oxycodone/Acetaminophen (Percocet 5/325 Mg Tab) 1 tab PO Q4H PRN PRN Reason: Pain, moderate (4-7) Stop: 08/23/18 11:49 Last Admin: 08/21/18 05:02 Dose: 1 tab Potassium Chloride (K-Dur 20 Meq Er Tab) 20 meq PO DAILY [facility] Last Admin: 08/21/18 12:15 Dose: 20 meq Rosuvastatin Calcium (Crestor) 20 mg PO HS [facility] Last Admin: 08/21/18 23:00 Dose: 20 mg - Labs Labs: 08/21/18 05:49 08/21/18 05:47 PT 12.5 SECONDS (9.7-12.2) H 08/20/18 07:48 INR 1.1 08/20/18 07:48 APTT 28 SECONDS (21-34) D 08/20/18 07:48 Assessment and Plan - Assessment and Plan (Free Text) Assessment: HTN management Statins and ASA 81 daily
--- NOTE | 2018-08-22 07:00 | PN ---
DATE: 08/19/2018 SUBJECTIVE: The patient was seen and examined on 08/19/2018. PHYSICAL EXAMINATION: VITAL SIGNS: Blood pressure is 117/70, pulse 85, respiratory rate 18, temperature 98. LUNGS: Clear. CVS: S1 and S2, regular. ABDOMEN: Soft. EXTREMITIES: Right upper extremity is cool. ASSESSMENT: Peripheral... INCOMPLETE DICTATION Ty Adams MD
[2018-08-22] MEDS: Potassium Chloride 20 mEq ER Tab PO SCH (09:02)
--- NOTE | 2018-08-22 09:54 | CP.PCM.PN ---
Subjective - Date & Time of Evaluation Date of Evaluation: 08/22/18 Time of Evaluation: 06:45 - Subjective Subjective: Surgery: Dr. Lora Pt seen and examined. No acute overnight events. States he feels well and denies any complaints at this time. Denies fevers/chills. Objective - Vital Signs/Intake and Output Vital Signs (last 24 hours): Temp Pulse Resp BP Pulse Ox 97.2 F L 110 H 19 127/72 95 08/22/18 09:20 08/22/18 09:20 08/22/18 09:20 08/22/18 09:20 08/22/18 09:20 Intake and Output: 08/22/18 08/22/18 06:59 18:59 Intake Total 600 Output Total 700 Balance -100 - Medications Medications: Current Medications Aspirin (Ecotrin) 81 mg PO DAILY [facility] Last Admin: 08/22/18 09:03 Dose: 81 mg Clopidogrel Bisulfate (Plavix) 75 mg PO DAILY [facility] Last Admin: 08/22/18 09:03 Dose: 75 mg Docusate Sodium (Colace) 100 mg PO BID [facility] Last Admin: 08/22/18 09:02 Dose: 100 mg Heparin Sodium (Porcine) (Heparin) 5,000 units SC Q8 [facility] Last Admin: 08/22/18 06:25 Dose: 5,000 units Labetalol HCl (Trandate) 100 mg PO BID [facility] Last Admin: 08/22/18 09:03 Dose: 100 mg Oxycodone/Acetaminophen (Percocet 5/325 Mg Tab) 1 tab PO Q4H PRN PRN Reason: Pain, moderate (4-7) Stop: 08/23/18 11:49 Last Admin: 08/21/18 05:02 Dose: 1 tab Potassium Chloride (K-Dur 20 Meq Er Tab) 20 meq PO DAILY [facility] Last Admin: 08/22/18 09:02 Dose: 20 meq Rosuvastatin Calcium (Crestor) 20 mg PO HS [facility] Last Admin: 08/21/18 23:00 Dose: 20 mg - Labs Labs: 08/21/18 05:49 08/21/18 05:47 PT 12.5 SECONDS (9.7-12.2) H 08/20/18 07:48 INR 1.1 08/20/18 07:48 APTT 28 SECONDS (21-34) D 08/20/18 07:48 - Constitutional Appears: Well, No Acute Distress - Head Exam Head Exam: ATRAUMATIC, NORMOCEPHALIC - Eye Exam Eye Exam: Normal appearance - ENT Exam ENT Exam: Mucous Membranes Moist - Neck Exam Additional comments: R neck with steristrips; clean/intact. Dressing replaced - Respiratory Exam Respiratory Exam: NORMAL BREATHING PATTERN - Cardiovascular Exam Cardiovascular Exam: RRR - GI/Abdominal Exam GI & Abdominal Exam: Soft - Extremities Exam Extremities Exam: absent: Tenderness - Neurological Exam Neurological Exam: Alert, Awake, Oriented x3 - Skin Skin Exam: Dry, Warm Assessment and Plan - Assessment and Plan (Free Text) Assessment: 67M with subclavian artery stenosis s/p subclavian-carotid artery bypass; POD#2 Plan: - no further surgical intervention - DC on ASA/Plavix - can f/u as outpt with Dr. Lora in 1 week Sonya
[2018-08-22] MEDS ORDERED: Magnesium Hydroxide Susp 30 ml UD PO ONE (18:15)
--- NOTE | 2018-08-22 21:30 | CP.PCM.PN ---
Subjective - Date & Time of Evaluation Date of Evaluation: 08/22/18 Time of Evaluation: 18:40 - Subjective Subjective: dictated Objective - Vital Signs/Intake and Output Vital Signs (last 24 hours): Temp Pulse Resp BP Pulse Ox 98.3 F 105 H 18 105/63 99 08/22/18 15:00 08/22/18 20:28 08/22/18 15:00 08/22/18 15:00 08/22/18 15:00 Intake and Output: 08/22/18 08/23/18 18:59 06:59 Intake Total 500 Balance 500 - Medications Medications: Current Medications Aspirin (Ecotrin) 81 mg PO DAILY [facility] Last Admin: 08/22/18 09:03 Dose: 81 mg Clopidogrel Bisulfate (Plavix) 75 mg PO DAILY [facility] Last Admin: 08/22/18 09:03 Dose: 75 mg Docusate Sodium (Colace) 100 mg PO BID [facility] Last Admin: 08/22/18 18:29 Dose: 100 mg Heparin Sodium (Porcine) (Heparin) 5,000 units SC Q8 [facility] Last Admin: 08/22/18 21:05 Dose: 5,000 units Labetalol HCl (Trandate) 100 mg PO BID [facility] Last Admin: 08/22/18 18:44 Dose: Not Given Oxycodone/Acetaminophen (Percocet 5/325 Mg Tab) 1 tab PO Q4H PRN PRN Reason: Pain, moderate (4-7) Stop: 08/23/18 11:49 Last Admin: 08/21/18 05:02 Dose: 1 tab Potassium Chloride (K-Dur 20 Meq Er Tab) 20 meq PO DAILY [facility] Last Admin: 08/22/18 09:02 Dose: 20 meq Rosuvastatin Calcium (Crestor) 20 mg PO HS [facility] Last Admin: 08/22/18 21:04 Dose: 20 mg - Labs Labs: 08/21/18 05:49 08/21/18 05:47 PT 12.5 SECONDS (9.7-12.2) H 08/20/18 07:48 INR 1.1 08/20/18 07:48 APTT 28 SECONDS (21-34) D 08/20/18 07:48
--- NOTE | 2018-08-23 02:10 | PN ---
DATE: 08/22/2018 SUBJECTIVE: The patient has recurrent bleeding at the operative site with swelling. The patient was seen by Surgery and dressing has been placed. PHYSICAL EXAMINATION: GENERAL: The patient is afebrile. No shortness of breath. No chest pain. VITAL SIGNS: Blood pressure 105/ 3, pulse 85, respiratory rate 18, temperature 98.3. LUNGS: Clear. CARDIOVASCULAR SYSTEM: S1 and S2, regular. ABDOMEN: Soft. ASSESSMENT: 1. Acute arterial occlusion of right upper extremity, status post bypass with recurrent bleeding at the bypass site. 2. Hyperlipidemia. 3. Hypertension. PLAN: Continue to observe the patient. Medical management. Monitor the patient. Potassium supplementation. Ty Adams MD
[2018-08-23 08:09] LABS: BASO # 0.1 K/uL (0.0-0.2); BASO % 0.6 % (0.0-2.0); EOS # 0.1 K/uL (0.0-0.7); EOS % 1.2 % (0.0-4.0); LYMPH # 1.8 K/uL (1.0-4.3); LYMPH % 18.2 % (20.0-40.0); MEAN CELL VOLUME 90.9 fL (80.0-94.0); MEAN CORPUSCULAR HEMOGLOBIN 31.8 pg (27.0-31.0); MEAN PLATELET VOLUME 7.9 fL (7.2-11.7); MONO % 10.6 % (0.0-10.0); NEUT # 6.7 K/uL (1.8-7.0); NEUT % 69.4 % (50.0-75.0); RBC 3.15 Mil/uL (4.40-5.90); RED CELL DISTRIBUTION WIDTH 13.4 % (11.5-14.5); WHITE BLOOD COUNT 9.7 K/uL (4.8-10.8)
--- NOTE | 2018-08-23 08:30 | CP.PCM.PN ---
Subjective - Date & Time of Evaluation Date of Evaluation: 08/22/18 Time of Evaluation: 20:30 - Subjective Subjective: Pt seen and examined. No acute overnight events. s/p R Carotid-Subclavian artery bypass; POD#2. No cardiac symptoms Physical Examination - Constitutional Appears: Well, No Acute Distress - Head Exam Head Exam: ATRAUMATIC, NORMOCEPHALIC - Eye Exam Eye Exam: Normal appearance - ENT Exam ENT Exam: Mucous Membranes Moist - Neck Exam Additional comments: R neck with dressing clean/dry intact, no swelling noted. Leonel drain with minimal output - Respiratory Exam Respiratory Exam: NORMAL BREATHING PATTERN - Cardiovascular Exam Cardiovascular Exam: Tachycardia, RRR - GI/Abdominal Exam GI & Abdominal Exam: Soft - Neurological Exam Neurological Exam: Alert, Awake, Oriented x3 - Skin Skin Exam: Dry, Warm Assessment and Plan - Assessment and Plan (Free Text) Assessment: 67M s/p R subclavian-carotid bypass with dacron graft for subclavian artery st enosis; POD#2 F/U with Vascular team Objective - Vital Signs/Intake and Output Vital Signs (last 24 hours): Temp Pulse Resp BP Pulse Ox 98.0 F 90 20 105/63 95 08/23/18 01:00 08/23/18 07:06 08/22/18 23:30 08/22/18 15:00 08/22/18 23:30 Intake and Output: 08/23/18 08/23/18 06:59 18:59 Intake Total 500 Balance 500 - Medications Medications: Current Medications Aspirin (Ecotrin) 81 mg PO DAILY [facility] Last Admin: 08/22/18 09:03 Dose: 81 mg Clopidogrel Bisulfate (Plavix) 75 mg PO DAILY [facility] Last Admin: 08/22/18 09:03 Dose: 75 mg Docusate Sodium (Colace) 100 mg PO BID [facility] Last Admin: 08/22/18 18:29 Dose: 100 mg Heparin Sodium (Porcine) (Heparin) 5,000 units SC Q8 [facility] Last Admin: 08/23/18 05:10 Dose: 5,000 units Labetalol HCl (Trandate) 100 mg PO BID [facility] Last Admin: 08/22/18 18:44 Dose: Not Given Oxycodone/Acetaminophen (Percocet 5/325 Mg Tab) 1 tab PO Q4H PRN PRN Reason: Pain, moderate (4-7) Stop: 08/23/18 11:49 Last Admin: 08/21/18 05:02 Dose: 1 tab Potassium Chloride (K-Dur 20 Meq Er Tab) 20 meq PO DAILY [facility] Last Admin: 08/22/18 09:02 Dose: 20 meq Rosuvastatin Calcium (Crestor) 20 mg PO HS [facility] Last Admin: 08/22/18 21:04 Dose: 20 mg - Labs Labs: 08/23/18 08:00 08/21/18 05:47 PT 12.5 SECONDS (9.7-12.2) H 08/20/18 07:48 INR 1.1 08/20/18 07:48 APTT 28 SECONDS (21-34) D 08/20/18 07:48
[2018-08-23 08:36] LABS: BLOOD UREA NITROGEN 11 mg/dL (9-20); CALCIUM 8.1 mg/dl (8.6-10.4); GFR NON-AFRICAN AMERICAN > 60
[2018-08-23] MEDS: Potassium Chloride 20 mEq ER Tab PO SCH (09:20)
--- NOTE | 2018-08-23 11:33 | CP.PCM.PN ---
Subjective - Date & Time of Evaluation Date of Evaluation: 08/23/18 Time of Evaluation: 11:30 - Subjective Subjective: doing well but some swelling in neck fluid/ blood will order ct scan to recheck if significant collection, would need re drainage in OR hold discharge pending resolution Objective - Vital Signs/Intake and Output Vital Signs (last 24 hours): Temp Pulse Resp BP Pulse Ox 98.0 F 98 H 20 99/58 L 95 08/23/18 01:00 08/23/18 09:19 08/22/18 23:30 08/23/18 09:19 08/22/18 23:30 Intake and Output: 08/23/18 08/23/18 06:59 18:59 Intake Total 500 Balance 500 - Medications Medications: Current Medications Aspirin (Ecotrin) 81 mg PO DAILY [facility] Last Admin: 08/23/18 09:20 Dose: 81 mg Clopidogrel Bisulfate (Plavix) 75 mg PO DAILY [facility] Last Admin: 08/23/18 09:20 Dose: 75 mg Docusate Sodium (Colace) 100 mg PO BID [facility] Last Admin: 08/23/18 09:20 Dose: 100 mg Heparin Sodium (Porcine) (Heparin) 5,000 units SC Q8 [facility] Last Admin: 08/23/18 05:10 Dose: 5,000 units Labetalol HCl (Trandate) 100 mg PO BID [facility] Last Admin: 08/23/18 09:21 Dose: Not Given Oxycodone/Acetaminophen (Percocet 5/325 Mg Tab) 1 tab PO Q4H PRN PRN Reason: Pain, moderate (4-7) Stop: 08/23/18 11:49 Last Admin: 08/21/18 05:02 Dose: 1 tab Potassium Chloride (K-Dur 20 Meq Er Tab) 20 meq PO DAILY [facility] Last Admin: 08/23/18 09:20 Dose: 20 meq Rosuvastatin Calcium (Crestor) 20 mg PO HS [facility] Last Admin: 08/22/18 21:04 Dose: 20 mg - Labs Labs: 08/23/18 08:00 08/23/18 08:00 PT 12.5 SECONDS (9.7-12.2) H 08/20/18 07:48 INR 1.1 08/20/18 07:48 APTT 28 SECONDS (21-34) D 08/20/18 07:48
--- NOTE | 2018-08-23 13:25 | CT ---
Date of service: 08/23/2018 PROCEDURE: CT NECK WITHOUT CONTRAST HISTORY: post op swelling COMPARISON: None available. TECHNIQUE: CT of the neck without intravenous contrast. Coronal and sagittal reformats generated. Radiation dose: Total exam DLP = 590.67 mGy-cm. This CT exam was performed using one or more of the following dose reduction techniques: Automated exposure control, adjustment of the mA and/or kV according to patient size, and/or use of iterative reconstruction technique. FINDINGS: NASOPHARYNX: Unremarkable. SUPRAHYOID NECK: Remarkable for a small cystic collection at the left tonsillar pillar measuring 1.0 x 0.7 cm potentially reflecting a small abscess. The remainder the suprahyoid neck reflects only calcifications at the right tonsillar pillar which are likely postinflammatory or postinfectious. Oral cavity appears grossly nonfocal as well as the pharynx. INFRAHYOID NECK: All hypopharynx is unremarkable as well as the supraglottic space, the larynx appears distorted mildly by cervical scoliotic deformity. The trachea is widely patent. GLANDS: Parotid and submandibular glands unremarkable. Normal size thyroid gland, without nodule. LYMPH NODES: No gross lymphadenopathy identified. CERVICAL SPINE: Scoliosis noted. OTHER FINDINGS: Heterogeneous soft tissue changes are identified creating mass effect at the right neck base into the supraclavicular fossa suggestive of hematoma. Hematoma measures 9.0 x 4.1 x 4.8 cm (transverse by anteroposterior by superoinferior dimensions) . This displaces the larynx and trachea laterally toward the left somewhat as well as screening and convex anterior deformity as superficial skin. Dermal thickening is identified in hemorrhage is seen related to the right sternocleidomastoid muscle intrinsically as well. Thrombosis of the right internal jugular vein is not excluded. Follow-up right upper extremity venous ultrasound is advised if possible. IMPRESSION: 9.0 cm hematoma is identified in the right sternocleidomastoid muscle and neck base extending into supraclavicular fossa exerting local mass effect and displacing the trachea slightly toward the left. Thrombosis right internal jugular vein is not excluded. Consider follow-up right upper extremity venous ultrasound if possible. Small cyst or possible abscess left tonsillar pillar. Findings have been discussed with Dr. Lora with written down read back verification 08/23/2018 1:05 p.m..
--- NOTE | 2018-08-23 20:13 | CP.PCM.PCO ---
Physician Communication Note - Physician Communication Note Physician Communication Note: CT of neck showed 9cm hematoma. Plan for OR tomorrow 9AM
[2018-08-24 08:10] LABS: HEMOGLOBIN 10.3 g/dL (12.0-18.0); MEAN CELL VOLUME 91.8 fL (80.0-94.0); MEAN CORPUSCULAR HEMOGLOBIN 31.4 pg (27.0-31.0); MEAN CORPUSCULAR HGB CONC 34.2 g/dL (33.0-37.0); MEAN PLATELET VOLUME 7.8 fL (7.2-11.7); RBC 3.26 Mil/uL (4.40-5.90); RED CELL DISTRIBUTION WIDTH 13.4 % (11.5-14.5); WHITE BLOOD COUNT 8.9 K/uL (4.8-10.8)
[2018-08-24 08:29] LABS: BLOOD UREA NITROGEN 11 mg/dL (9-20); CALCIUM 8.5 mg/dl (8.6-10.4); GFR NON-AFRICAN AMERICAN > 60
[2018-08-24] MEDS: Potassium Chloride 20 mEq ER Tab PO SCH (09:16)
[2018-08-24] MEDS ORDERED: ceFAZolin 1 gm in NS 1 GM/100 ML BAG IVPB ONE (09:28)
[2018-08-24] MEDS ORDERED: Midazolam 2 MG/2 ML VIAL ONE (09:29)
[2018-08-24] MEDS ORDERED: Propofol 10 mg/ml Inj (20 ML) ONE (09:34)
[2018-08-24] MEDS ORDERED: Lidocaine/Epinephrine 1% 1:100000 10 ML IJ ONE (09:35)
[2018-08-24] MEDS ORDERED: Thrombin Topical 20,000 Intl Units Spray Kit TOP ONE (09:43)
[2018-08-24] MEDS ORDERED: Bacitracin 500 Units/gm Oint Foilpak UD ONE (10:25)
--- NOTE | 2018-08-24 10:37 | PCM.SURG1 ---
Surgeon's Initial Post Op Note - Surgeon's Notes Surgeon: MD Geno Certified Control Systems Technician: Hoang, PGY3 Pre-Operative Diagnosis: Right neck fluid collection Operative Findings: Hematoma 50-100cc Post-Operative Diagnosis: Right neck hematoma Operation Performed: Exploration of right neck wound, hematoma evacuation, application of thrombin spray, closure of wound Specimen/Specimens Removed: right neck hematoma Estimated Blood Loss: EBL {In ML}: 10 Date of Surgery/Procedure: 08/24/18 Time of Surgery/Procedure: 10:37
[2018-08-24] MEDS ORDERED: HYDROmorphone 0.5 mg/0.5 ml ISec IVP PRN (10:41)
[2018-08-24] MEDS ORDERED: Oxycodone/Acetaminophen 5/325 mg Tab PO PRN (10:43)
[2018-08-24] MEDS ORDERED: ePHEDrine 50 mg/ml Inj ONE (10:49)
[2018-08-24] MEDS ORDERED: Phenylephrine 10 mg/ml Inj ONE (10:49)
--- NOTE | 2018-08-24 18:59 | CP.PCM.PN ---
Subjective - Date & Time of Evaluation Date of Evaluation: 08/24/18 Time of Evaluation: 08:40 - Subjective Subjective: dictated Objective - Vital Signs/Intake and Output Vital Signs (last 24 hours): Temp Pulse Resp BP Pulse Ox 97.6 F 98 H 20 139/75 95 08/24/18 15:53 08/24/18 16:39 08/24/18 15:53 08/24/18 15:53 08/24/18 15:53 Intake and Output: 08/24/18 08/24/18 06:59 18:59 Intake Total 500 1300 Balance 500 1300 - Medications Medications: Current Medications Aspirin (Ecotrin) 81 mg PO DAILY [facility] Last Admin: 08/24/18 09:16 Dose: Not Given Clopidogrel Bisulfate (Plavix) 75 mg PO DAILY [facility] Last Admin: 08/24/18 09:16 Dose: Not Given Docusate Sodium (Colace) 100 mg PO BID [facility] Last Admin: 08/24/18 18:12 Dose: Not Given Heparin Sodium (Porcine) (Heparin) 5,000 units SC Q8 [facility] Last Admin: 08/23/18 21:02 Dose: 5,000 units Hydromorphone HCl (Dilaudid) 0.5 mg IVP Q15M PRN PRN Reason: Pain, severe (8-10) Cefazolin Sodium 500 mg/ (Sodium Chloride) 50 mls @ 100 mls/hr IVPB Q8H [facility]; Protocol Last Admin: 08/24/18 13:06 Dose: Not Given Labetalol HCl (Trandate) 100 mg PO BID [facility] Last Admin: 08/24/18 17:36 Dose: 100 mg Oxycodone/Acetaminophen (Percocet 5/325 Mg Tab) 1 tab PO Q6H PRN PRN Reason: Pain, severe (8-10) Stop: 08/27/18 10:44 Potassium Chloride (K-Dur 20 Meq Er Tab) 20 meq PO DAILY [facility] Last Admin: 08/24/18 09:16 Dose: Not Given Rosuvastatin Calcium (Crestor) 20 mg PO HS [facility] Last Admin: 08/23/18 21:02 Dose: 20 mg - Labs Labs: 08/24/18 08:03 08/24/18 08:03 PT 12.5 SECONDS (9.7-12.2) H 08/20/18 07:48 INR 1.1 08/20/18 07:48 APTT 28 SECONDS (21-34) D 08/20/18 07:48
--- NOTE | 2018-08-24 18:59 | CP.PCM.PN ---
Subjective - Date & Time of Evaluation Date of Evaluation: 08/23/18 Time of Evaluation: 08:40 - Subjective Subjective: dictated Objective - Vital Signs/Intake and Output Vital Signs (last 24 hours): Temp Pulse Resp BP Pulse Ox 97.6 F 98 H 20 139/75 95 08/24/18 15:53 08/24/18 16:39 08/24/18 15:53 08/24/18 15:53 08/24/18 15:53 Intake and Output: 08/24/18 08/24/18 06:59 18:59 Intake Total 500 1300 Balance 500 1300 - Medications Medications: Current Medications Aspirin (Ecotrin) 81 mg PO DAILY [facility] Last Admin: 08/24/18 09:16 Dose: Not Given Clopidogrel Bisulfate (Plavix) 75 mg PO DAILY [facility] Last Admin: 08/24/18 09:16 Dose: Not Given Docusate Sodium (Colace) 100 mg PO BID [facility] Last Admin: 08/24/18 18:12 Dose: Not Given Heparin Sodium (Porcine) (Heparin) 5,000 units SC Q8 [facility] Last Admin: 08/23/18 21:02 Dose: 5,000 units Hydromorphone HCl (Dilaudid) 0.5 mg IVP Q15M PRN PRN Reason: Pain, severe (8-10) Cefazolin Sodium 500 mg/ (Sodium Chloride) 50 mls @ 100 mls/hr IVPB Q8H [facility]; Protocol Last Admin: 08/24/18 13:06 Dose: Not Given Labetalol HCl (Trandate) 100 mg PO BID [facility] Last Admin: 08/24/18 17:36 Dose: 100 mg Oxycodone/Acetaminophen (Percocet 5/325 Mg Tab) 1 tab PO Q6H PRN PRN Reason: Pain, severe (8-10) Stop: 08/27/18 10:44 Potassium Chloride (K-Dur 20 Meq Er Tab) 20 meq PO DAILY [facility] Last Admin: 08/24/18 09:16 Dose: Not Given Rosuvastatin Calcium (Crestor) 20 mg PO HS [facility] Last Admin: 08/23/18 21:02 Dose: 20 mg - Labs Labs: 08/24/18 08:03 08/24/18 08:03 PT 12.5 SECONDS (9.7-12.2) H 08/20/18 07:48 INR 1.1 08/20/18 07:48 APTT 28 SECONDS (21-34) D 08/20/18 07:48
--- NOTE | 2018-08-24 20:37 | OP ---
PROCEDURE DATE: 08/24/2018 PREOPERATIVE DIAGNOSIS: Wound hematoma. POSTOPERATIVE DIAGNOSIS: Wound hematoma. PROCEDURE CARRIED OUT: Evacuation of wound hematoma. INDICATIONS: The patient is a man who previously underwent a right carotid subclavian artery bypass with a Dacron graft. From the recovery room, he had a small wound hematoma. He was returned to the operating room. Now, he is ready for discharge. He has a significant wound hematoma on the right side again. Because of this and the nature of the prosthetic graft, I recommend that he return to the operating room for operative exploration. OPERATIVE FINDINGS: There was 50 to 100 mL of old blood in the wound. There was no active bleeding from any site. This wound was carefully inspected. It was irrigated with Irrisept. The patient received systemic antibiotics prior to initiating the procedure. Blood loss for the procedure itself was less than 10 mL, 0 to 10 mL. After thorough irrigation, a thorough evacuation of the wound was carried out with no active bleeding and only a small hematoma, but nonetheless significant given the circumstances. The wound was then approximated and closed. The patient tolerated the procedure uneventfully. Blood loss for the procedure was as mentioned. Operation carried out was re-exploration of hematoma, right neck. Varun Lora Jr., MD
--- NOTE | 2018-08-24 23:30 | PN ---
DATE: 08/24/2018 SUBJECTIVE: The patient is for OR today. The patient has a hematoma with bleeding and he underwent OR and fluid collection of 52 to 100 mL that has been removed. The patient is postop, afebrile. No shortness of breath. No chest pain. PHYSICAL EXAMINATION: VITAL SIGNS: Blood pressure 139/75, pulse 62, respiratory rate 20, temperature 97.6. LUNGS: Clear. CARDIOVASCULAR SYSTEM: S1, S2, regular. ABDOMEN: Soft, nontender. Bowel sounds are positive. EXTREMITIES: Right leg hematoma. ASSESSMENT: 1. Acute arterial occlusion, median of right upper extremity, status post bypass with postoperative hematoma. 2. Anemia due to bleeding. 3. Hypertension. 4. Hyperlipidemia. PLAN: Continue OR. Monitor the patient. Ty Adams MD
[2018-08-25] MEDS: Potassium Chloride 20 mEq ER Tab PO SCH (09:09)
--- NOTE | 2018-08-25 09:59 | CP.PCM.PN ---
Subjective - Date & Time of Evaluation Date of Evaluation: 08/25/18 Time of Evaluation: 07:00 - Subjective Subjective: Vascular Surgery: Dr. Lora Pt seen and examined. No acute overnight events. Pt states he feels well and denies any complaints at this time. Pt is tolerating his diet and denies any complaints of nausea/vomiting, fevers/chills. Objective - Vital Signs/Intake and Output Vital Signs (last 24 hours): Temp Pulse Resp BP Pulse Ox 97.4 F L 90 18 121/85 98 08/25/18 07:20 08/25/18 09:07 08/25/18 07:20 08/25/18 09:07 08/25/18 07:20 Intake and Output: 08/25/18 08/25/18 06:59 18:59 Intake Total 600 300 Output Total 315 20 Balance 285 280 - Medications Medications: Current Medications Aspirin (Ecotrin) 81 mg PO DAILY [facility] Last Admin: 08/25/18 09:08 Dose: 81 mg Clopidogrel Bisulfate (Plavix) 75 mg PO DAILY [facility] Last Admin: 08/25/18 09:08 Dose: 75 mg Docusate Sodium (Colace) 100 mg PO BID [facility] Last Admin: 08/25/18 09:35 Dose: Not Given Heparin Sodium (Porcine) (Heparin) 5,000 units SC Q8 [facility] Last Admin: 08/23/18 21:02 Dose: 5,000 units Hydromorphone HCl (Dilaudid) 0.5 mg IVP Q15M PRN PRN Reason: Pain, severe (8-10) Cefazolin Sodium 500 mg/ (Sodium Chloride) 50 mls @ 100 mls/hr IVPB Q8H [facility]; Protocol Last Admin: 08/25/18 03:18 Dose: 100 mls/hr Labetalol HCl (Trandate) 100 mg PO BID [facility] Last Admin: 08/25/18 09:08 Dose: 100 mg Oxycodone/Acetaminophen (Percocet 5/325 Mg Tab) 1 tab PO Q6H PRN PRN Reason: Pain, severe (8-10) Stop: 08/27/18 10:44 Potassium Chloride (K-Dur 20 Meq Er Tab) 20 meq PO DAILY [facility] Last Admin: 08/25/18 09:09 Dose: 20 meq Rosuvastatin Calcium (Crestor) 20 mg PO HS [facility] Last Admin: 08/24/18 21:17 Dose: 20 mg - Labs Labs: 08/24/18 08:03 08/24/18 08:03 PT 12.5 SECONDS (9.7-12.2) H 08/20/18 07:48 INR 1.1 08/20/18 07:48 APTT 28 SECONDS (21-34) D 08/20/18 07:48 - Constitutional Appears: Well, No Acute Distress - Head Exam Head Exam: ATRAUMATIC, NORMOCEPHALIC - Eye Exam Eye Exam: Normal appearance - Neck Exam Additional comments: R neck dressing clean/dry/intact. Jose drain in place with minimal serosang drainage - Respiratory Exam Respiratory Exam: NORMAL BREATHING PATTERN - Cardiovascular Exam Cardiovascular Exam: RRR - GI/Abdominal Exam GI & Abdominal Exam: Soft. absent: Tenderness - Neurological Exam Neurological Exam: Alert, Awake, Oriented x3 Assessment and Plan - Assessment and Plan (Free Text) Assessment: 67M with subclavian artery stenosis s/p R subclavian-carotid artery bypass; POD#5 & evacuation of hematoma from R neck; POD#1 Plan: - cont to monitor - possible jose removal prior to DC vs removal in office - d/w Dr. Geno Hassan
[2018-08-25 17:01] VITALS: RESP 20
--- NOTE | 2018-08-25 21:33 | CP.PCM.PN ---
Subjective - Date & Time of Evaluation Date of Evaluation: 08/25/18 Time of Evaluation: 08:20 - Subjective Subjective: dictated Objective - Vital Signs/Intake and Output Vital Signs (last 24 hours): Temp Pulse Resp BP Pulse Ox 98.4 F 73 20 155/93 H 96 08/25/18 15:00 08/25/18 17:13 08/25/18 15:00 08/25/18 15:00 08/25/18 15:00 Intake and Output: 08/25/18 08/26/18 18:59 06:59 Intake Total 800 Output Total 525 Balance 275 - Medications Medications: Current Medications Aspirin (Ecotrin) 81 mg PO DAILY [facility] Last Admin: 08/25/18 09:08 Dose: 81 mg Clopidogrel Bisulfate (Plavix) 75 mg PO DAILY [facility] Last Admin: 08/25/18 09:08 Dose: 75 mg Docusate Sodium (Colace) 100 mg PO BID [facility] Last Admin: 08/25/18 17:41 Dose: Not Given Heparin Sodium (Porcine) (Heparin) 5,000 units SC Q8 [facility] Last Admin: 08/23/18 21:02 Dose: 5,000 units Hydromorphone HCl (Dilaudid) 0.5 mg IVP Q15M PRN PRN Reason: Pain, severe (8-10) Cefazolin Sodium 500 mg/ (Sodium Chloride) 50 mls @ 100 mls/hr IVPB Q8H [facility]; Protocol Last Admin: 08/25/18 20:07 Dose: 100 mls/hr Labetalol HCl (Trandate) 100 mg PO BID [facility] Last Admin: 08/25/18 17:40 Dose: 100 mg Oxycodone/Acetaminophen (Percocet 5/325 Mg Tab) 1 tab PO Q6H PRN PRN Reason: Pain, severe (8-10) Stop: 08/27/18 10:44 Potassium Chloride (K-Dur 20 Meq Er Tab) 20 meq PO DAILY [facility] Last Admin: 08/25/18 09:09 Dose: 20 meq Rosuvastatin Calcium (Crestor) 20 mg PO HS [facility] Last Admin: 08/25/18 21:24 Dose: 20 mg - Labs Labs: 08/24/18 08:03 08/24/18 08:03 PT 12.5 SECONDS (9.7-12.2) H 08/20/18 07:48 INR 1.1 08/20/18 07:48 APTT 28 SECONDS (21-34) D 08/20/18 07:48
[2018-08-26 01:18] VITALS: TEMP 97.9
[2018-08-26 02:04] VITALS: PULSE 77
[2018-08-26 07:51] LABS: HEMOGLOBIN 11.1 g/dL (12.0-18.0); MEAN CELL VOLUME 92.4 fL (80.0-94.0); MEAN CORPUSCULAR HEMOGLOBIN 31.7 pg (27.0-31.0); MEAN CORPUSCULAR HGB CONC 34.3 g/dL (33.0-37.0); MEAN PLATELET VOLUME 7.5 fL (7.2-11.7); RBC 3.5 Mil/uL (4.40-5.90); RED CELL DISTRIBUTION WIDTH 13.5 % (11.5-14.5); WHITE BLOOD COUNT 9.4 K/uL (4.8-10.8)
[2018-08-26 08:17] VITALS: BP 132/83; O2SAT 100
--- NOTE | 2018-08-26 08:30 | CP.PCM.PN ---
Subjective - Date & Time of Evaluation Date of Evaluation: 08/26/18 Time of Evaluation: 06:45 - Subjective Subjective: Progress note for vascular surgery, Dr. Lora. 67M POD#6 with subclavian artery stenosis s/p R subclavian-carotid artery bypass & POD#2 evacuation of hematoma from R neck. Patient afebrile, OOB to chair and in no acute distress. States he feels better and denies pain to R neck. Leonel drain was removed yesterday. Denies fever, chills, lightheadedness, weakness, numbness and tingling. Objective - Vital Signs/Intake and Output Vital Signs (last 24 hours): Temp Pulse Resp BP Pulse Ox 97.9 F 77 20 132/83 100 08/26/18 07:00 08/26/18 07:00 08/26/18 07:00 08/26/18 07:00 08/26/18 07:00 Intake and Output: 08/26/18 08/26/18 06:59 18:59 Intake Total 500 Balance 500 - Medications Medications: Current Medications Aspirin (Ecotrin) 81 mg PO DAILY [facility] Last Admin: 08/25/18 09:08 Dose: 81 mg Clopidogrel Bisulfate (Plavix) 75 mg PO DAILY [facility] Last Admin: 08/25/18 09:08 Dose: 75 mg Docusate Sodium (Colace) 100 mg PO BID [facility] Last Admin: 08/25/18 17:41 Dose: Not Given Heparin Sodium (Porcine) (Heparin) 5,000 units SC Q8 [facility] Last Admin: 08/23/18 21:02 Dose: 5,000 units Hydromorphone HCl (Dilaudid) 0.5 mg IVP Q15M PRN PRN Reason: Pain, severe (8-10) Cefazolin Sodium 500 mg/ (Sodium Chloride) 50 mls @ 100 mls/hr IVPB Q8H [facility]; Protocol Last Admin: 08/26/18 04:41 Dose: 100 mls/hr Labetalol HCl (Trandate) 100 mg PO BID [facility] Last Admin: 08/25/18 17:40 Dose: 100 mg Oxycodone/Acetaminophen (Percocet 5/325 Mg Tab) 1 tab PO Q6H PRN PRN Reason: Pain, severe (8-10) Stop: 08/27/18 10:44 Potassium Chloride (K-Dur 20 Meq Er Tab) 20 meq PO DAILY [facility] Last Admin: 08/25/18 09:09 Dose: 20 meq Rosuvastatin Calcium (Crestor) 20 mg PO HS [facility] Last Admin: 08/25/18 21:24 Dose: 20 mg - Labs Labs: 08/26/18 07:41 08/24/18 08:03 PT 12.5 SECONDS (9.7-12.2) H 08/20/18 07:48 INR 1.1 08/20/18 07:48 APTT 28 SECONDS (21-34) D 08/20/18 07:48 - Constitutional Appears: Non-toxic, No Acute Distress - Head Exam Head Exam: ATRAUMATIC, NORMOCEPHALIC - Eye Exam Eye Exam: EOMI, Normal appearance - ENT Exam ENT Exam: Mucous Membranes Moist - Neck Exam Additional comments: R neck with pressure dressing in place. Dressing is c/d/i. - Respiratory Exam Respiratory Exam: NORMAL BREATHING PATTERN. absent: Respiratory Distress - GI/Abdominal Exam GI & Abdominal Exam: Tenderness - Neurological Exam Neurological Exam: Alert, Awake, Oriented x3 - Psychiatric Exam Psychiatric exam: Normal Affect, Normal Mood Assessment and Plan - Assessment and Plan (Free Text) Assessment: 67M POD#6 with subclavian artery stenosis s/p R subclavian-carotid artery bypass; & POD#2 evacuation of hematoma from R neck Plan: Patient stable for discharge from a surgical stand point. Follow up With Dr. Lora in office within one week. d/w Dr. Geno Knight-[id number].
[2018-08-26] MEDS: Potassium Chloride 20 mEq ER Tab PO SCH (09:52)
--- NOTE | 2018-08-26 12:28 | CP.PCM.PN ---
Subjective - Date & Time of Evaluation Date of Evaluation: 08/26/18 Time of Evaluation: 12:28 - Subjective Subjective: PATIENT SEEN AND EXAMINED AT THE BEDSIDE Objective - Vital Signs/Intake and Output Vital Signs (last 24 hours): Temp Pulse Resp BP Pulse Ox 97.9 F 77 20 132/83 100 08/26/18 07:00 08/26/18 08:34 08/26/18 07:00 08/26/18 07:00 08/26/18 07:00 Intake and Output: 08/26/18 08/26/18 06:59 18:59 Intake Total 500 Balance 500 - Medications Medications: Current Medications Aspirin (Ecotrin) 81 mg PO DAILY [facility] Last Admin: 08/26/18 09:52 Dose: 81 mg Clopidogrel Bisulfate (Plavix) 75 mg PO DAILY [facility] Last Admin: 08/26/18 09:52 Dose: 75 mg Docusate Sodium (Colace) 100 mg PO BID [facility] Last Admin: 08/26/18 09:52 Dose: 100 mg Heparin Sodium (Porcine) (Heparin) 5,000 units SC Q8 [facility] Last Admin: 08/23/18 21:02 Dose: 5,000 units Hydromorphone HCl (Dilaudid) 0.5 mg IVP Q15M PRN PRN Reason: Pain, severe (8-10) Cefazolin Sodium 500 mg/ (Sodium Chloride) 50 mls @ 100 mls/hr IVPB Q8H [facility]; Protocol Last Admin: 08/26/18 04:41 Dose: 100 mls/hr Labetalol HCl (Trandate) 100 mg PO BID [facility] Last Admin: 08/26/18 09:52 Dose: 100 mg Oxycodone/Acetaminophen (Percocet 5/325 Mg Tab) 1 tab PO Q6H PRN PRN Reason: Pain, severe (8-10) Stop: 08/27/18 10:44 Potassium Chloride (K-Dur 20 Meq Er Tab) 20 meq PO DAILY [facility] Last Admin: 08/26/18 09:52 Dose: 20 meq Rosuvastatin Calcium (Crestor) 20 mg PO HS [facility] Last Admin: 08/25/18 21:24 Dose: 20 mg - Labs Labs: 08/26/18 07:41 08/24/18 08:03 PT 12.5 SECONDS (9.7-12.2) H 08/20/18 07:48 INR 1.1 08/20/18 07:48 APTT 28 SECONDS (21-34) D 08/20/18 07:48 Assessment and Plan - Assessment and Plan (Free Text) Assessment: FOLLOW UP WITH DR BRANNON IN HIS OFFICE ----CALL FOR APPOINTMENT FOLLOW UP DR RICHARD IN HIS OFFICE IN ONE WEEK -----CALL FOR APPOINTMENT FOLLOW UP WITH DR GARCIA IN HIS OFFICE CONTINUE HOME MEDICATION NEW PRESCRIPTION GIVEN CRESTOR 10 MG PO ONE TAB AT NIGHT LABETOLOL 100 MG PO ONE TAB TWICE A DAY COLACE 100 MG PO TWICE A DAY FOR CONSTIPATION ASPIRIN 81 MG ONE TAB DAILY PLAVIX 75 MG PO ONE TAB DAILY ACTIVITY TOLERATED CALL DR BRANNON OR DR SHAH OR GO TO THE EMERGENCY ROOM IF SYMPTOM RETURN OR WORSENING
--- NOTE | 2018-08-26 23:09 | CP.PCM.DIS ---
Provider - Provider Date of Admission: 08/17/18 15:03 Attending physician: Ty Adams MD Consults: 08/17/18 13:03 Physician Consult Stat Comment: Consulting Provider: Varun Shah Jr. Consulting Physician: Varun Shah Jr. Reason for Consult: blue cool right fingertips, absent radial pulse 08/17/18 16:48 Cardiology Consult Routine Comment: Consulting Provider: Chencho Diaz Consulting Physician: Chencho Diaz Reason for Consult: PVD 08/17/18 20:00 Cardiology Consult Routine Comment: Consulting Provider: Chencho Diaz Consulting Physician: Chencho Diaz Reason for Consult: syncopal episode 08/18/18 08:47 Physician Consult Routine Comment: Consulting Provider: Zach Bailey Consulting Physician: aZch Bailey Reason for Consult: innominate artery stensos Time Spent in preparation of Discharge (in minutes): 30 Hospital Course - Lab Results Lab Results: Micro Results 08/22/18 09:54 Naris MRSA Culture - Final MRSA NOT DETECTED 08/20/18 07:04 Nose MRSA Culture (Admit) - Final MRSA NOT DETECTED Most Recent Lab Values WBC 9.4 K/uL (4.8-10.8) 08/26/18 07:41 RBC 3.50 Mil/uL (4.40-5.90) L 08/26/18 07:41 Hgb 11.1 g/dL (12.0-18.0) L 08/26/18 07:41 Hct 32.3 % (35.0-51.0) L 08/26/18 07:41 MCV 92.4 fL (80.0-94.0) 08/26/18 07:41 MCH 31.7 pg (27.0-31.0) H 08/26/18 07:41 MCHC 34.3 g/dL (33.0-37.0) 08/26/18 07:41 RDW 13.5 % (11.5-14.5) 08/26/18 07:41 Plt Count 390 K/uL (130-400) D 08/26/18 07:41 MPV 7.5 fL (7.2-11.7) 08/26/18 07:41 Neut % (Auto) 69.4 % (50.0-75.0) 08/23/18 08:00 Lymph % (Auto) 18.2 % (20.0-40.0) L 08/23/18 08:00 Bureau % (Auto) 10.6 % (0.0-10.0) H 08/23/18 08:00 Eos % (Auto) 1.2 % (0.0-4.0) 08/23/18 08:00 Baso % (Auto) 0.6 % (0.0-2.0) 08/23/18 08:00 Neut # (Auto) 6.7 K/uL (1.8-7.0) 08/23/18 08:00 Lymph # (Auto) 1.8 K/uL (1.0-4.3) 08/23/18 08:00 Bureau # (Auto) 1.0 K/uL (0.0-0.8) H 08/23/18 08:00 Eos # (Auto) 0.1 K/uL (0.0-0.7) 08/23/18 08:00 Baso # (Auto) 0.1 K/uL (0.0-0.2) 08/23/18 08:00 ESR 21 mm/hr (0-15) H 08/17/18 18:15 PT 12.5 SECONDS (9.7-12.2) H 08/20/18 07:48 INR 1.1 08/20/18 07:48 APTT 28 SECONDS (21-34) D 08/20/18 07:48 Sodium 135 mmol/L (132-148) 08/24/18 08:03 Potassium 4.1 mmol/L (3.6-5.2) 08/24/18 08:03 Chloride 103 mmol/L (98-107) 08/24/18 08:03 Carbon Dioxide 26 mmol/L (22-30) 08/24/18 08:03 Anion Gap 11 (10-20) 08/24/18 08:03 BUN 11 mg/dL (9-20) 08/24/18 08:03 Creatinine 0.8 mg/dL (0.8-1.5) 08/24/18 08:03 Est GFR ( Amer) > 60 08/24/18 08:03 Est GFR (Non-Af Amer) > 60 08/24/18 08:03 POC Glucose (mg/dL) 130 mg/dL (65-110) H 08/17/18 19:37 Random Glucose 101 mg/dL (75-110) 08/24/18 08:03 Hemoglobin A1c 5.9 % (4.2-6.5) 08/19/18 07:31 Calcium 8.5 mg/dl (8.6-10.4) L 08/24/18 08:03 Phosphorus 2.3 mg/dL (2.5-4.5) L 08/20/18 07:48 Magnesium 2.0 mg/dL (1.6-2.3) 08/20/18 07:48 Total Bilirubin 0.7 mg/dL (0.2-1.3) 08/20/18 07:48 AST 23 U/L (17-59) 08/20/18 07:48 ALT 10 U/L (21-72) L 08/20/18 07:48 Alkaline Phosphatase 97 U/L (38-126) 08/20/18 07:48 Total Creatine Kinase 147 U/L (55-170) 08/18/18 07:18 CK-MB (Mass) 2.47 ng/mL (0.0-3.38) 08/18/18 07:18 Troponin I 0.0130 ng/mL (0.00-0.120) 08/18/18 07:18 Total Protein 6.9 g/dL (6.3-8.3) 08/20/18 07:48 Albumin 3.5 g/dL (3.5-5.0) 08/20/18 07:48 Globulin 3.3 gm/dL (2.2-3.9) 08/20/18 07:48 Albumin/Globulin Ratio 1.1 (1.0-2.1) 08/20/18 07:48 Triglycerides 82 mg/dL (0-149) 08/17/18 18:15 Cholesterol 189 mg/dL (0-199) 08/17/18 18:15 LDL Cholesterol Direct 122 mg/dL (0-129) 08/17/18 18:15 HDL Cholesterol 55 mg/dL (30-70) 08/17/18 18:15 Homocysteine Cardiovas 16.6 umol/L ( <11.4) H 08/17/18 18:15 Urine Color Straw (YELLOW) 08/17/18 14:49 Urine Clarity Clear (Clear) 08/17/18 14:49 Urine pH 7.0 (5.0-8.0) 08/17/18 14:49 Ur Specific [place] 1.014 (1.003-1.030) 08/17/18 14:49 Urine Protein Negative mg/dL (NEGATIVE) 08/17/18 14:49 Urine Glucose (UA) Normal mg/dL (Normal) 08/17/18 14:49 Urine Ketones Negative mg/dL (NEGATIVE) 08/17/18 14:49 Urine Blood 1+ (NEGATIVE) H 08/17/18 14:49 Urine Nitrate Negative (NEGATIVE) 08/17/18 14:49 Urine Bilirubin Negative (NEGATIVE) 08/17/18 14:49 Urine Urobilinogen Normal mg/dL (0.2-1.0) 08/17/18 14:49 Ur Leukocyte Esterase Neg Perm/uL (Negative) 08/17/18 14:49 Urine WBC (Auto) < 1 /hpf (0-5) 08/17/18 14:49 Urine RBC (Auto) 2 /hpf (0-3) 08/17/18 14:49 Blood Type O POSITIVE 08/23/18 14:13 Antibody Screen Negative 08/23/18 14:13 Discharge Exam - Head Exam Head Exam: ATRAUMATIC, NORMOCEPHALIC Discharge Plan - Discharge Medications Prescriptions: Docusate [Colace] 100 mg PO BID 30 Days cap Rosuvastatin Calcium [Crestor] 20 mg PO HS 30 Days tab Aspirin [Ecotrin] 81 mg PO DAILY 30 Days tabec Clopidogrel [Plavix] 75 mg PO DAILY 30 Days tab Labetalol [Trandate] 100 mg PO BID 30 Days tab - Follow Up Plan Condition: SERIOUS Disposition: HOME/ ROUTINE Instructions: Heart Healthy Diet, Smoking: Not Just Harmful to Your Lungs and Heart, High Blood Pressure (DC), Quitting Smoking, Aspirin, Clopidogrel, Docusate, Labetalol Additional Instructions: FOLLOW UP WITH DR ADAMS IN HIS OFFICE ----CALL FOR APPOINTMENT FOLLOW UP DR SHAH IN HIS OFFICE IN ONE WEEK -----CALL FOR APPOINTMENT FOLLOW UP WITH DR DIAZ IN HIS OFFICE CONTINUE HOME MEDICATION NEW PRESCRIPTION GIVEN CRESTOR 10 MG PO ONE TAB AT NIGHT LABETOLOL 100 MG PO ONE TAB TWICE A DAY COLACE 100 MG PO TWICE A DAY FOR CONSTIPATION ASPIRIN 81 MG ONE TAB DAILY PLAVIX 75 MG PO ONE TAB DAILY ACTIVITY TOLERATED CALL DR ADAMS OR DR SHAH OR GO TO THE EMERGENCY ROOM IF SYMPTOM RETURN OR WORSENING SEGUIRSE CON EL DR ADAMS EN BAPTISTE OFICINA ---- LLAME PARA SOLICITAR SANDY SANDRA SEGUIR AL DR RICHARD EN BAPTISTE OFICINA EN SANDY SEMANA ----- LLAME PARA SOLICITAR SANDY SANDRA SEGUIRSE CON EL DR DIAZ EN BAPTISTE OFICINA CONTINUAR MEDICAMENTOS PARA EL HOGAR NUEVA RECETA REDD CRESTOR 10 MG PO SANDY PESTAA EN LA NOCHE LABETOLOL 100 MG PO SANDY PESTAA DOS VECES AL BLADIMIR COLACE 100 MG PO DOS VECES AL DA PARA LA CONSTIPACIN ASPIRIN 81 MG ONE TAB DAILY PLAVIX 75 MG PO ONE TAB DAILY LA ACTIVIDAD ROSALIND TOLERADA LLAME AL DR. ADAMS O AL DR. SHAH O VAYA A LA JUNIE DE EMERGENCIA SI EL SNTOMA DEVUELVE O CONSIDERA Referrals: Chencho Diaz MD [Staff Provider] - Ty Adams MD [Staff Provider] - Varun Shah Jr., MD [Staff Provider] -
--- NOTE | 2018-08-27 11:57 | DS ---
DISCHARGE DIAGNOSES: 1. Right upper extremity arterial occlusion. 2. Postop hematoma. 3. Hypertension. 4. Hyperlipidemia. HISTORY OF PRESENT ILLNESS: This is a 67-year-old male with a history of right upper extremity pain in the hand, found to have acute arterial and occlusion at the brachial level, and the patient underwent surgery and postoperatively he developed hematoma, which was evacuated. He was feeling better. He is for discharge. CONDITION UPON DISCHARGE: Stable. PHYSICAL EXAMINATION: VITAL SIGNS: Blood pressure 132/60, pulse 77, respiratory rate 20, and temperature 97.9. LUNGS: Clear. CARDIOVASCULAR: S1 and S2, regular. ABDOMEN: Soft. PLAN: Discharge the patient. Ty Adams MD
== END 2018-08-26 15:00 | disposition home or self-care (01) | DRG 253 ==
LOC: C.ER 11:31 → C.9E 15:03 → C.5S 22:50 → C.9S 08-20 12:34 → C.9I 08-20 19:34 → C.5S 08-22 09:22
PROVIDERS: ADMIT Internal Medicine; ATTEND Internal Medicine
PROC: B30 Imaging, Upper Arteries, Plain Radiography (ICD-10-PCS; 2018-08-19)
PROC: 0JC50ZZ Extirpation of Matter from Left Neck Subcutaneous Tissue and Fascia, Open Approach (ICD-10-PCS; 2018-08-20)
PROC: 0J9500Z Drainage of Left Neck Subcutaneous Tissue and Fascia with Drainage Device, Open Approach (ICD-10-PCS; 2018-08-20)
PROC: 031 Upper Arteries, Bypass (ICD-10-PCS; principal; 2018-08-20 07:45)
PROC: 0HC4XZZ Extirpation of Matter from Neck Skin, External Approach (ICD-10-PCS; 2018-08-24)
DX: I70.298 Other atherosclerosis of native arteries of extremities, other extremity (principal); I77.1 Stricture of artery; L76.32 Postprocedural hematoma of skin and subcutaneous tissue following other procedure; R50.82 Postprocedural fever; D50.0 Iron deficiency anemia secondary to blood loss (chronic); I10 Essential (primary) hypertension; E78.5 Hyperlipidemia, unspecified; E78.00 Pure hypercholesterolemia, unspecified; K59.00 Constipation, unspecified; Z87.891 Personal history of nicotine dependence